=== PATIENT | female | born 1960 | race American Indian/Alaskan Native ===

== ENCOUNTER 2017-06-02 09:10 | Emergency (ER) | payer MEDICARE, MEDICAID ==
[~2017-06-02] VITALS: Ht 167.6 cm; Wt 102.7 kg
[2017-06-02 09:10] VITALS: BP 134/90
[~2017-06-02 09:10] MED LIST: CLON-527 PO; DIPH25CA83 PO; EPIN0.3P8 IM; FLUT16SP2 BOTHNARES; OXYC-134 PO; PRED10TA PO
[2017-06-02] MEDS ORDERED: CEPH500C5 PO (09:50)
== END 2017-06-02 12:50 | disposition home or self-care (01) ==
LOC: ER 09:10
DX: J02.0 Streptococcal pharyngitis (principal); R06.02 Shortness of breath; M54.5 Low back pain; F41.9 Anxiety disorder, unspecified; F41.0 Panic disorder [episodic paroxysmal anxiety]; N18.9 Chronic kidney disease, unspecified; Z88.0 Allergy status to penicillin; Z88.1 Allergy status to other antibiotic agents; Z88.2 Allergy status to sulfonamides; Z88.5 Allergy status to narcotic agent; Z79.899 Other long term (current) drug therapy
CPT/HCPCS: 99283

== ENCOUNTER 2017-11-28 17:23 | Observation (INO) | payer MEDICARE, MEDICAID ==
[~2017-11-28] VITALS: Ht 167.6 cm; Wt 104.5 kg
[~2017-11-28 17:23] MED LIST changes: +CEPH500C5 PO
[2017-11-28 17:48] LABS: BASOPHILS # (AUTO) 0.1 X10'3 (0-0.2); BASOPHILS % (AUTO) 0.9 % (0-1); EOSINOPHILS # (AUTO) 0.4 X10'3 (0-0.9); EOSINOPHILS % (AUTO) 3.7 % (0-6); HEMATOCRIT 41.4 % (35.0-45.0); HEMOGLOBIN 14.5 g/dl (12.0-16.0); LYMPHOCYTES # (AUTO) 3.7 X10'3 (1.1-4.8); LYMPHOCYTES % (AUTO) 37.5 % (21-51); MEAN CORPUSCULAR VOLUME 91.4 FL (78-98); MEAN PLATELET VOLUME 8.8 FL (7.4-10.4); MONOCYTES # (AUTO) 0.8 X10'3 (0-0.9); MONOCYTES % (AUTO) 8.4 % (2-12); NEUTROPHILS # (AUTO) 4.9 X10'3 (1.8-7.7); NEUTROPHILS % (AUTO) 49.5 % (42-75); PLATELET COUNT 243 X10'3 (140-440); RED BLOOD COUNT 4.52 X10'6 (4.20-5.60)
[2017-11-28 17:58] LABS: PARTIAL THROMBOPLASTIN TIME 25 SECONDS (22-32)
[2017-11-28 18:01] LABS: ALANINE AMINOTRANSFERASE 57 U/L (12-78); ALBUMIN 3.9 G/DL (3.4-5.0); ALBUMIN/GLOBULIN RATIO 1.1 (1.1-1.5); ALKALINE PHOSPHATASE 145 IU/L (46-116); ANION GAP 12 (8-16); ASPARTATE AMINO TRANSFERASE 28 U/L (10-37); BILIRUBIN,TOTAL 0.4 MG/DL (0.1-1.0); BLOOD UREA NITROGEN 19 MG/DL (7-18); BUN/CREATININE RATIO 13.3 (6.6-38.0); CALCIUM 9.4 MG/DL (8.5-10.1); CHLORIDE 107 MMOL/L (99-107); CREATININE 1.43 MG/DL (0.40-0.90); GLUCOSE 105 MG/DL (70-104); POTASSIUM 3.7 MMOL/L (3.5-5.1); SODIUM 142 MMOL/L (135-145); TOTAL CARBON DIOXIDE 22.6 MMOL/L (24-32); TOTAL PROTEIN 7.6 G/DL (6.4-8.2); eGFR 38 ML/MIN
[2017-11-28] MEDS ORDERED: CHOLECALCIFEROL (19:29)
[2017-11-28] MEDS ORDERED: METF500T PO (19:29)
[2017-11-28] MEDS ORDERED: acetaminophen 325mg tablet PO PRN ×2 (19:55)
[2017-11-28] MEDS ORDERED: ondansetron/PF 4mg/2ml inj IV PRN (19:55)
[2017-11-28] MEDS ORDERED: mag hydrox/Alum hydrox/simeth 30ml oral suspension PO PRN (19:55)
[2017-11-28] MEDS ORDERED: magnesium hydroxide 30ml (MOM) UD suspension PO PRN (19:55)
[2017-11-28] MEDS ORDERED: diphenhydrAMINE 25mg capsule PO PRN (20:00)
[2017-11-28] MEDS ORDERED: temazepam 15mg capsule PO PRN (21:00)
[2017-11-28] MEDS: clonazePAM 1mg tablet PO SCH (21:09)
[2017-11-28 22:00] VITALS: BP 150/88
[2017-11-29 02:00] VITALS: BP 130/73
[2017-11-29 06:00] VITALS: BP 141/81
[2017-11-29 06:52] LABS: BASOPHILS # (AUTO) 0.1 X10'3 (0-0.2); BASOPHILS % (AUTO) 0.7 % (0-1); EOSINOPHILS # (AUTO) 0.4 X10'3 (0-0.9); HEMOGLOBIN 14.5 g/dl (12.0-16.0); LYMPHOCYTES # (AUTO) 2.9 X10'3 (1.1-4.8); MEAN CORPUSCULAR HEMOGLOBIN 32.4 PG (27.0-31.0); MEAN CORPUSCULAR HGB CONC 35.4 % (33.0-36.5); MEAN CORPUSCULAR VOLUME 91.4 FL (78-98); MEAN PLATELET VOLUME 8.9 FL (7.4-10.4); MONOCYTES # (AUTO) 0.6 X10'3 (0-0.9); MONOCYTES % (AUTO) 8.6 % (2-12); NEUTROPHILS # (AUTO) 3.6 X10'3 (1.8-7.7); NEUTROPHILS % (AUTO) 47.7 % (42-75); PLATELET COUNT 219 X10'3 (140-440); RED BLOOD COUNT 4.49 X10'6 (4.20-5.60); RED CELL DISTRIBUTION WIDTH 12.8 % (11.5-14.5); WHITE BLOOD COUNT 7.5 X10'3 (4.5-11.0)
[2017-11-29 07:15] LABS: ALBUMIN 3.7 G/DL (3.4-5.0); ANION GAP 8 (8-16); BLOOD UREA NITROGEN 18 MG/DL (7-18); BUN/CREATININE RATIO 14.2 (6.6-38.0); CALCIUM 9.4 MG/DL (8.5-10.1); CHLORIDE 107 MMOL/L (99-107); CREATININE 1.27 MG/DL (0.40-0.90); GLUCOSE 104 MG/DL (70-104); POTASSIUM 3.7 MMOL/L (3.5-5.1); SODIUM 143 MMOL/L (135-145); TOTAL CARBON DIOXIDE 27.6 MMOL/L (24-32); eGFR 44 ML/MIN
[2017-11-29] MEDS ORDERED: aspirin 81mg tablet.DR PO SCH (08:00)
[2017-11-29] MEDS: clonazePAM 1mg tablet PO SCH ×2 (08:24→13:07)
[2017-11-29] MEDS ORDERED: nitroGLYCERIN 0.4mg SUBLingual tab SL PRN (09:20)
[2017-11-29] MEDS ORDERED: CAFFEINE CITRATE 60 MG/3 ML injection vial IV PRN (09:20)
[2017-11-29] MEDS ORDERED: metoprolol tartrate 1mg/ml inj IV PRN (09:20)
[2017-11-29] MEDS ORDERED: regadenoson 0.4mg/5ml syringe IV PRN (09:20)
[2017-11-29 11:00] VITALS: BP 143/84
== END 2017-11-29 15:00 | disposition home or self-care (01) ==
LOC: ER 17:23 → ED HOLD 19:52 → EDBEDREQ 20:10 → PCU 3S 21:08
PROVIDERS: ADMIT Hospitalist; ATTEND Family Medicine
DX: R07.89 Other chest pain (principal); F41.1 Generalized anxiety disorder; G47.33 Obstructive sleep apnea (adult) (pediatric); I12.9 Hypertensive chronic kidney disease with stage 1 through stage 4 chronic kidney disease, or unspecified chronic kidney disease; F41.0 Panic disorder [episodic paroxysmal anxiety]; N18.9 Chronic kidney disease, unspecified; R73.03 Prediabetes; I20.0 Unstable angina; Z87.891 Personal history of nicotine dependence; Z90.710 Acquired absence of both cervix and uterus
CPT/HCPCS: 36415; 71045; 80048; 80053; 84484; 85025; 85610; 85730; 87070; 93005; 93306; 99285; G0378

== ENCOUNTER 2018-10-22 11:18 | Emergency (ER) | payer MEDICARE, MEDICAID ==
[~2018-10-22] VITALS: Ht 167.6 cm; Wt 110.0 kg
[~2018-10-22 11:18] MED LIST changes: -CEPH500C5 PO; +CHOLECALCIFEROL; -FLUT16SP2 BOTHNARES; +METF500T PO; -OXYC-134 PO; -PRED10TA PO
[2018-10-22 13:01] LABS: BASOPHILS # (AUTO) 0.1 X10'3 (0-0.2); BASOPHILS % (AUTO) 1.3 % (0-1); EOSINOPHILS # (AUTO) 0.3 X10'3 (0-0.9); EOSINOPHILS % (AUTO) 3.3 % (0-6); HEMATOCRIT 45.4 % (35.0-45.0); HEMOGLOBIN 15.6 g/dl (12.0-16.0); LYMPHOCYTES # (AUTO) 2.4 X10'3 (1.1-4.8); LYMPHOCYTES % (AUTO) 28.8 % (21-51); MEAN CORPUSCULAR HEMOGLOBIN 32.1 PG (27.0-31.0); MEAN CORPUSCULAR HGB CONC 34.4 g/dL (33.0-36.5); MEAN CORPUSCULAR VOLUME 93.5 FL (78-98); MEAN PLATELET VOLUME 8.7 FL (7.4-10.4); MONOCYTES # (AUTO) 0.7 X10'3 (0-0.9); MONOCYTES % (AUTO) 8.6 % (2-12); NEUTROPHILS # (AUTO) 4.9 X10'3 (1.8-7.7); PLATELET COUNT 234 X10'3 (140-440); RED BLOOD COUNT 4.85 X10'6 (4.20-5.60); RED CELL DISTRIBUTION WIDTH 13.2 % (11.5-14.5); WHITE BLOOD COUNT 8.4 X10'3 (4.5-11.0)
[2018-10-22 13:16] LABS: ALANINE AMINOTRANSFERASE 216 U/L (12-78); ALBUMIN 3.8 G/DL (3.4-5.0); ALKALINE PHOSPHATASE 146 IU/L (46-116); ANION GAP 7 (8-16); ASPARTATE AMINO TRANSFERASE 99 U/L (10-37); BILIRUBIN,TOTAL 0.5 MG/DL (0.1-1.0); BLOOD UREA NITROGEN 20 MG/DL (7-18); BUN/CREATININE RATIO 15.7 (6.6-38.0); CHLORIDE 106 MMOL/L (99-107); CREATININE 1.27 MG/DL (0.40-0.90); GLUCOSE 98 MG/DL (70-104); POTASSIUM 3.9 MMOL/L (3.5-5.1); SODIUM 142 MMOL/L (135-145); TOTAL CARBON DIOXIDE 29.1 MMOL/L (24-32); TOTAL PROTEIN 7.7 G/DL (6.4-8.2); eGFR 44 ML/MIN
[2018-10-22 15:04] LABS: LIPASE 567 U/L (73-393)
[2018-10-22] MEDS ORDERED: ondansetron 4mg rapidly disintigrating tab PO ONE (15:35)
[2018-10-22] MEDS ORDERED: ibuprofen tablet 400 MG TABLET PO ONE (15:35)
[2018-10-22 15:48] LABS: CLARITY,URINE CLOUDY (Clear); COLOR,URINE YELLOW (Yellow); GLUCOSE, URINE NEGATIVE (Neg); KETONES,URINE NEGATIVE (Neg); LEUKOCYTE ESTERASE ,URINE NEGATIVE (Neg); NITRITES, URINE NEGATIVE (Neg); OCCULT BLOOD,URINE NEGATIVE (Neg); PH,URINE 5.5 (4.8-8.0); PROTEIN,URINE NEGATIVE (Neg); UROBILINOGEN,URINE 0.2 E.U/dL (0.2-1.0)
[2018-10-22 15:52] LABS: UA COLLECTION TYPE CLN CATCH MIDSTREAM
[2018-10-22 15:55] LABS: SQUAMOUS EPITHELIAL CELL,UR MANY /LPF (FEW)
[2018-10-22 15:56] LABS: BACTERIA,URINE 1+ /HPF (Neg); CAL OXALATE CRYSTALS 1+ /HPF (NEGATIVE); RBC,URINE 0-2 /HPF (0-2); WBC,URINE 0-4 /HPF (0-4)
[2018-10-22] MEDS ORDERED: ONDA8TAB6 PO (16:34)
[2018-10-22 16:46] VITALS: BP 163/90
== END 2018-10-22 16:49 | disposition home or self-care (01) ==
LOC: ER 11:19
DX: K85.90 Acute pancreatitis without necrosis or infection, unspecified (principal); N18.9 Chronic kidney disease, unspecified; Z90.49 Acquired absence of other specified parts of digestive tract; Z90.710 Acquired absence of both cervix and uterus; Z88.2 Allergy status to sulfonamides; Z88.1 Allergy status to other antibiotic agents; Z88.5 Allergy status to narcotic agent; Z88.8 Allergy status to other drugs, medicaments and biological substances; Z79.84 Long term (current) use of oral hypoglycemic drugs; Z79.899 Other long term (current) drug therapy
CPT/HCPCS: 36415; 74176; 80053; 81001; 83690; 85025; 85610; 99284

== ENCOUNTER 2019-11-17 19:04 | Emergency (ER) | payer MEDICARE, MEDICAID ==
[~2019-11-17] VITALS: Ht 167.6 cm; Wt 113.6 kg
[~2019-11-17 19:04] MED LIST changes: +ONDA8TAB6 PO
[2019-11-17 19:48] LABS: URINE HCG NEGATIVE (NEG)
[2019-11-17 19:52] LABS: CLARITY,URINE CLEAR (Clear); COLOR,URINE STRAW (Yellow); GLUCOSE, URINE NEGATIVE (Neg); KETONES,URINE NEGATIVE (Neg); LEUKOCYTE ESTERASE ,URINE NEGATIVE (Neg); NITRITES, URINE NEGATIVE (Neg); OCCULT BLOOD,URINE TRACE-INTACT (Neg); PROTEIN,URINE NEGATIVE (Neg); UROBILINOGEN,URINE 0.2 E.U/dL (0.2-1.0)
[2019-11-17 20:01] LABS: BASOPHILS # (AUTO) 0.1 X10'3 (0-0.2); BASOPHILS % (AUTO) 1.1 % (0-1); EOSINOPHILS # (AUTO) 0.4 X10'3 (0-0.9); EOSINOPHILS % (AUTO) 4.6 % (0-6); HEMATOCRIT 44.8 % (35.0-45.0); HEMOGLOBIN 15.2 g/dl (12.0-16.0); LYMPHOCYTES # (AUTO) 2.8 X10'3 (1.1-4.8); LYMPHOCYTES % (AUTO) 37.4 % (21-51); MEAN CORPUSCULAR HEMOGLOBIN 31.9 PG (27.0-31.0); MEAN CORPUSCULAR VOLUME 93.9 FL (78-98); MEAN PLATELET VOLUME 9.1 FL (7.4-10.4); MONOCYTES # (AUTO) 0.9 X10'3 (0-0.9); MONOCYTES % (AUTO) 11.7 % (2-12); NEUTROPHILS # (AUTO) 3.4 X10'3 (1.8-7.7); NEUTROPHILS % (AUTO) 45.2 % (42-75); PLATELET COUNT 217 X10'3 (140-440); RED BLOOD COUNT 4.78 X10'6 (4.20-5.60); RED CELL DISTRIBUTION WIDTH 13.5 % (11.5-14.5); WHITE BLOOD COUNT 7.6 X10'3 (4.5-11.0)
[2019-11-17 20:06] LABS: UA COLLECTION TYPE CLN CATCH MIDSTREAM
[2019-11-17 20:07] LABS: BACTERIA,URINE NONE SEEN /HPF (Neg); RBC,URINE 0-2 /HPF (0-2); SQUAMOUS EPITHELIAL CELL,UR MODERATE /LPF (FEW); WBC,URINE 0-4 /HPF (0-4)
[2019-11-17 20:12] LABS: ALANINE AMINOTRANSFERASE 154 U/L (12-78); ALBUMIN 3.8 G/DL (3.4-5.0); ALBUMIN/GLOBULIN RATIO 0.9 (1.1-1.5); ALKALINE PHOSPHATASE 158 IU/L (46-116); ANION GAP 11 (8-16); ASPARTATE AMINO TRANSFERASE 78 U/L (10-37); BILIRUBIN,TOTAL 0.5 MG/DL (0.1-1.0); BLOOD UREA NITROGEN 14 MG/DL (7-18); BUN/CREATININE RATIO 11.6 (6.6-38.0); CALCIUM 8.7 MG/DL (8.5-10.1); CHLORIDE 109 MMOL/L (99-107); CREATININE 1.21 MG/DL (0.40-0.90); GLUCOSE 83 MG/DL (70-104); POTASSIUM 4.1 MMOL/L (3.5-5.1); SODIUM 146 MMOL/L (135-145); TOTAL CARBON DIOXIDE 26.1 MMOL/L (24-32); TOTAL PROTEIN 8.2 G/DL (6.4-8.2); eGFR 46 ML/MIN
[2019-11-17] MEDS ORDERED: ondansetron/PF 4mg/2ml inj IV ONE (20:20)
[2019-11-17] MEDS ORDERED: normal saline 1000ML IV soln IVB ONE (20:20)
[2019-11-17] MEDS ORDERED: ketorolac trometh. 30mg/ml inj. IV ONE (20:20)
[2019-11-17 21:24] VITALS: BP 160/69
[2019-11-17] MEDS ORDERED: KETO10TA2 PO (21:28)
[2019-11-17] MEDS ORDERED: ONDA4TAB6 PO (21:28)
== END 2019-11-17 22:03 | disposition home or self-care (01) ==
LOC: ER 19:05
DX: N20.0 Calculus of kidney (principal); R10.32 Left lower quadrant pain; N18.3 Chronic kidney disease, stage 3 (moderate); F41.9 Anxiety disorder, unspecified; G47.30 Sleep apnea, unspecified; Z90.49 Acquired absence of other specified parts of digestive tract; Z90.710 Acquired absence of both cervix and uterus; Z88.2 Allergy status to sulfonamides; Z88.5 Allergy status to narcotic agent; Z88.8 Allergy status to other drugs, medicaments and biological substances; Z79.899 Other long term (current) drug therapy
CPT/HCPCS: 36415; 74176; 80053; 81001; 81025; 85025; 96374; 96375; 99284; J1885; J2405; J7030

== ENCOUNTER 2020-10-17 11:51 | Emergency (ER) | payer MEDICARE, MEDICAID ==
[~2020-10-17] VITALS: Ht 167.6 cm; Wt 117.6 kg
[~2020-10-17 11:51] MED LIST changes: +KETO10TA2 PO; +ONDA4TAB6 PO
[2020-10-17 12:02] VITALS: BP 172/88
--- NOTE | 2020-10-17 14:02 | NUR ---
pt is resting quietly on gurney, resp even and unlabored, skin p/w/d, talking full sentences
[2020-10-17] MEDS ORDERED: dexamethasone sod phosphate 10mg/ml inj PO STA (14:05)
--- NOTE | 2020-10-17 14:10 | NUR ---
pt to xray
[2020-10-17] MEDS ORDERED: LIDOcaine Viscous 15ml cup MM STA (14:44)
[2020-10-17] MEDS ORDERED: mag hydrox/Alum hydrox/simeth 30ml oral suspension PO ONE (14:45)
[2020-10-17 15:53] LABS: BASOPHILS # (AUTO) 0.1 X10'3 (0-0.2); BASOPHILS % (AUTO) 1.2 % (0-1); EOSINOPHILS # (AUTO) 0.3 X10'3 (0-0.9); EOSINOPHILS % (AUTO) 4.7 % (0-6); HEMATOCRIT 43.6 % (35.0-45.0); HEMOGLOBIN 14.9 g/dl (12.0-16.0); LYMPHOCYTES # (AUTO) 2.4 X10'3 (1.1-4.8); LYMPHOCYTES % (AUTO) 33.3 % (21-51); MEAN CORPUSCULAR HEMOGLOBIN 32.4 PG (27.0-31.0); MEAN CORPUSCULAR HGB CONC 34.1 g/dL (33.0-36.5); MEAN PLATELET VOLUME 9.1 FL (7.4-10.4); MONOCYTES # (AUTO) 0.5 X10'3 (0-0.9); MONOCYTES % (AUTO) 7.7 % (2-12); NEUTROPHILS # (AUTO) 3.8 X10'3 (1.8-7.7); NEUTROPHILS % (AUTO) 53.1 % (42-75); PLATELET COUNT 225 X10'3 (140-440); RED BLOOD COUNT 4.59 X10'6 (4.20-5.60); RED CELL DISTRIBUTION WIDTH 13.2 % (11.5-14.5); WHITE BLOOD COUNT 7.1 X10'3 (4.5-11.0)
[2020-10-17 16:05] LABS: ALANINE AMINOTRANSFERASE 68 U/L (12-78); ALBUMIN 3.8 G/DL (3.4-5.0); ALKALINE PHOSPHATASE 146 IU/L (46-116); ANION GAP 6 (8-16); ASPARTATE AMINO TRANSFERASE 34 U/L (10-37); BILIRUBIN,TOTAL 0.6 MG/DL (0.1-1.0); BLOOD UREA NITROGEN 16 MG/DL (7-18); BUN/CREATININE RATIO 13.8 (6.6-38.0); CALCIUM 8.8 MG/DL (8.5-10.1); CHLORIDE 108 MMOL/L (99-107); CREATININE 1.16 MG/DL (0.40-0.90); GLUCOSE 101 MG/DL (70-104); SODIUM 143 MMOL/L (135-145); TOTAL CARBON DIOXIDE 29.1 MMOL/L (24-32); TOTAL PROTEIN 7.8 G/DL (6.4-8.2); eGFR 48 ML/MIN
[2020-10-17] MEDS ORDERED: AMLO5TAB4 PO (16:53)
[2020-10-17] MEDS ORDERED: CLIN150C2 PO (16:53)
== END 2020-10-17 17:08 | disposition home or self-care (01) ==
LOC: ER 11:53
DX: R59.1 Generalized enlarged lymph nodes (principal); R13.10 Dysphagia, unspecified; N18.9 Chronic kidney disease, unspecified; Z98.890 Other specified postprocedural states; F31.9 Bipolar disorder, unspecified; F32.9 Major depressive disorder, single episode, unspecified; Z88.2 Allergy status to sulfonamides; Z88.1 Allergy status to other antibiotic agents; Z88.8 Allergy status to other drugs, medicaments and biological substances; Z79.899 Other long term (current) drug therapy
CPT/HCPCS: 36415; 70360; 70490; 80053; 85025; 99285; J1100

== ENCOUNTER 2021-01-18 14:11 | Outpatient (CLI) | payer MEDICARE, MEDICAID, OTHER ==
[~2021-01-18 14:11] MED LIST changes: +AMLO5TAB4 PO
== END 2021-01-18 23:59 | disposition home or self-care (01) ==
LOC: RAD 14:11
PROVIDERS: ATTEND Family Medicine
DX: K21.9 Gastro-esophageal reflux disease without esophagitis (principal); R13.14 Dysphagia, pharyngoesophageal phase
CPT/HCPCS: 74230

== ENCOUNTER 2021-12-15 11:16 | Day surgery (SDC) | payer MEDICARE, MEDICAID, OTHER ==
[~2021-12-15] VITALS: Ht 167.6 cm; Wt 117.3 kg
[2021-12-15 11:40] VITALS: BP 147/81
[2021-12-15] MEDS ORDERED: CARV6.253 PO (12:04)
[2021-12-15] MEDS ORDERED: CRAN500T4 PO (12:04)
[2021-12-15] MEDS ORDERED: CLON-371 PO (12:04)
[2021-12-15] MEDS ORDERED: LIDOcaine 1% 30ml preserv. free vial SQ STA (12:11)
[2021-12-15 13:09] VITALS: BP 179/111
== END 2021-12-15 13:09 | disposition home or self-care (01) ==
LOC: SSTAY O 11:16
PROVIDERS: ATTEND Preventive Medicine Aerospace Medicine
DX: R59.0 Localized enlarged lymph nodes (principal); E04.1 Nontoxic single thyroid nodule
CPT/HCPCS: 76536

== ENCOUNTER 2024-04-16 17:30 | Emergency (ER) | payer MEDICARE, MEDICAID, OTHER ==
[~2024-04-16] VITALS: Ht 167.6 cm; Wt 120.0 kg
[~2024-04-16 17:30] MED LIST changes: -AMLO5TAB4 PO; +CARV6.253 PO; -CHOLECALCIFEROL; +CRAN500T4 PO; -DIPH25CA83 PO; -EPIN0.3P8 IM; -KETO10TA2 PO; -METF500T PO; -ONDA4TAB6 PO; -ONDA8TAB6 PO
[2024-04-16 17:54] VITALS: TEMP 98.6
[2024-04-16 19:52] LABS: BILIRUBIN,URINE NEGATIVE (Neg); CLARITY,URINE CLEAR (Clear); COLOR,URINE YELLOW (Yellow); GLUCOSE, URINE NEGATIVE (Neg); KETONES,URINE NEGATIVE (Neg); LEUKOCYTE ESTERASE ,URINE SMALL (Neg); NITRITES, URINE NEGATIVE (Neg); OCCULT BLOOD,URINE SMALL (Neg); PROTEIN,URINE NEGATIVE (Neg); UROBILINOGEN,URINE 0.2 E.U/dL (0.2-1.0)
[2024-04-16 19:58] LABS: UA COLLECTION TYPE CLN CATCH MIDSTREAM
[2024-04-16 20:03] LABS: BASOPHILS # (AUTO) 0.1 X10'3 (0-0.2); BASOPHILS % (AUTO) 1.2 % (0-1); EOSINOPHILS # (AUTO) 0.4 X10'3 (0-0.9); EOSINOPHILS % (AUTO) 5.9 % (0-6); HEMOGLOBIN 14.7 g/dl (12.0-16.0); LYMPHOCYTES # (AUTO) 2.5 X10'3 (1.1-4.8); LYMPHOCYTES % (AUTO) 36.4 % (21-51); MEAN CORPUSCULAR HEMOGLOBIN 32.1 PG (27.0-31.0); MEAN CORPUSCULAR VOLUME 91.9 FL (78-98); MEAN PLATELET VOLUME 9.3 FL (7.4-10.4); MONOCYTES # (AUTO) 0.7 X10'3 (0-0.9); NEUTROPHILS # (AUTO) 3.2 X10'3 (1.8-7.7); NEUTROPHILS % (AUTO) 46.5 % (42-75); PLATELET COUNT 209 X10'3 (140-440); RED BLOOD COUNT 4.57 X10'6 (4.20-5.60); RED CELL DISTRIBUTION WIDTH 13.3 % (11.5-14.5); WHITE BLOOD COUNT 6.9 X10'3 (4.5-11.0)
[2024-04-16 20:08] LABS: BACTERIA,URINE 1+ /HPF (Neg); SQUAMOUS EPITHELIAL CELL,UR MODERATE /LPF (FEW)
[2024-04-16] MEDS ORDERED: HYDROcodone/acetaminophen 10/325mg tab PO ONE (20:30)
[2024-04-16] MEDS: ketorolac trometh 30MG/ML vial 30 MG/ML VIAL IM ONE (20:30)
[2024-04-16 20:36] LABS: ALANINE AMINOTRANSFERASE 37 U/L (12-78); ALBUMIN 3.9 G/DL (3.4-5.0); ALBUMIN/GLOBULIN RATIO 1.1 (1.1-1.5); ALKALINE PHOSPHATASE 135 IU/L (46-116); ANION GAP 8 (8-16); ASPARTATE AMINO TRANSFERASE 31 U/L (10-37); BILIRUBIN,TOTAL 0.5 MG/DL (0.1-1.0); BLOOD UREA NITROGEN 18 MG/DL (7-18); BUN/CREATININE RATIO 12.5 (10.0-20.0); CALCIUM 9.1 MG/DL (8.5-10.1); CHLORIDE 108 MMOL/L (99-107); CREATININE 1.44 MG/DL (0.40-0.90); GLUCOSE 99 MG/DL (70-104); LIPASE 31 U/L (16-77); POTASSIUM 3.9 MMOL/L (3.5-5.1); SODIUM 145 MMOL/L (135-145); TOTAL CARBON DIOXIDE 29.5 MMOL/L (24-32); TOTAL PROTEIN 7.6 G/DL (6.4-8.2); eCRCL 38 ML/MIN; eGFR 37 ML/MIN
[2024-04-16] MEDS: normal saline 1000ml 1,000 ML IV ONE (21:35)
[2024-04-16] MEDS: ondansetron 4mg rapidly disintigrating tab PO ONE (21:36)
[2024-04-16] MEDS: CefTRIAXone 1000mg IM Kit (w/lidocaine diluent) IM ONE (21:41)
[2024-04-16 22:24] VITALS: BP 168/78; PULSE 68; RESP 16; O2SAT 100
== END 2024-04-16 22:28 | disposition home or self-care (01) ==
LOC: ER 17:31
DX: N39.0 Urinary tract infection, site not specified (principal); F41.9 Anxiety disorder, unspecified; F32.A Depression, unspecified; F41.0 Panic disorder [episodic paroxysmal anxiety]; N18.9 Chronic kidney disease, unspecified; G47.30 Sleep apnea, unspecified; Z88.0 Allergy status to penicillin; Z88.2 Allergy status to sulfonamides; Z88.1 Allergy status to other antibiotic agents; Z88.5 Allergy status to narcotic agent; Z79.899 Other long term (current) drug therapy; Z90.710 Acquired absence of both cervix and uterus; Z90.49 Acquired absence of other specified parts of digestive tract; Z87.442 Personal history of urinary calculi
CPT/HCPCS: 36415; 74176; 80053; 81001; 83605; 83690; 85025; 87040; 87077; 87088; 87186; 96372; 99285; J0696

== ENCOUNTER 2025-03-01 12:09 | Inpatient (IN) | payer MEDICARE, MEDICAID ==
[~2025-03-01] VITALS: Ht 167.6 cm; Wt 113.6 kg
[~2025-03-01 12:09] MED LIST changes: -CRAN500T4 PO; +CRAN500T7 PO
--- NOTE | 2025-03-01 12:38 | Physician Documentation ---
History of Present Illness ~ Chief Complaint: Urinary Symptoms Stated Complaint: VOMITING Time Seen by MD: 15:18 Primary Medical Doctor: neyda BELCHER This is a 64-year-old female who presents with concern for persistent urinary tract infection symptoms, patient is seen by primary care and referred to the emergency department due to concern for antibiotic resistant UTI with possible pyelonephritis. Patient reports fever and chills at home. Patient states she has had pyelonephritis at least 3 times in his require hospital admissions. She states that over the last two weeks she has had symptoms that were intermittent. She has had a temperature of over 103 F and chills. sHe is appropriate to the situation and a good historian Medication Reconciliation Allergies: Coded Allergies: propoxyphene napsylate (Verified Allergy, Intermediate, 04/16/24) Penicillins (Verified Allergy, Unknown, 03/01/25) Sulfa (Sulfonamide Antibiotics) (Verified Allergy, Unknown, difficulty breathing, hives, 03/01/25) acetaminophen (Verified Allergy, Unknown, 03/01/25) amoxicillin (Verified Allergy, Unknown, 03/01/25) codeine (Verified Allergy, Unknown, 03/01/25) hydrocodone bit (Verified Allergy, Unknown, 04/16/24) HIVES propoxyphene (Verified Allergy, Unknown, 04/16/24) tetracycline (Verified Allergy, Unknown, 04/16/24) Scheduled Carvedilol (Carvedilol), 1 TAB PO BID, (Reported) Clonazepam* (Klonopin*), 1 MG PO TID, (Reported) Cranberry Extract (Cranberry), 1 TAB PO Q12H, (Reported) Past Medical History Past Medical History: Heart Valve Disease, Sleep Apnea, Chronic Kidney Disease, Kidney Stones, Anxiety, Depression, Panic Disorder Past Surgical History: cholecystectomy, , hysterectomy Other Past Surgical History: Anterior cervical fusion Alcohol Use: Rarely Drug Use: none Lives with: Family Lives In: Home Occupation: employed Review of Systems ROS As stated above in the HPI, otherwise all systems are reviewed and negative. Physical Exam Vital Signs: Temperature: 97.0, Source: Temporal, Heart Rate: 90, Respiratory Rate: 18, BP: 122/66, Pulse Oximetry: 99, Weight: 113.640 Physical Exam VITALS: Reviewed and as above. GENERAL: Alert, nontoxic appearing, no apparent distress. HEENT: RESPIRATORY: No increased work of breathing, no respiratory distress, speaking in full clear sentences CHEST: CV: BACK: GI: MUSCULOSKELETAL: SKIN: NEURO: PSYCH: Progress Results/Orders Results/Orders Orders - GREGORY LATIF METALIZER FIELD OPERATION Page Hospitalist (03/01/25 ) Completed Orders - GREGORY LATIF [employer]PERATION Normal Saline 1000ml (0.9% Sodium Chlori (03/01/25 15:50) Ceftriaxone 2gm/D5w 50ml Bag (Rocephin 2 (03/01/25 15:48) LA (03/01/25 16:05) Medications Received in ER Medications (Trade) Dose Ordered Sig/Agustina Route PRN Reason Start Time Stop Time Status Last Admin Dose Admin (0.9% sodium chloride (NS) 1000ml IV soln) 2,000 ml ONCE ONCE IVB 03/01/25 15:50 03/01/25 15:51 DC 03/01/25 16:09 2,000 ML Ceftriaxone Sodium/Dextrose 50 ml @ 100 mls/hr NOW STAT IV 03/01/25 15:48 03/01/25 16:17 DC 03/01/25 16:09 100 MLS/HR (Tylenol tablet) 650 mg Q6H PRN PO Fever above 101 03/01/25 16:30 03/01/25 22:17 650 MG Sodium Chloride 1,000 ml @ 150 mls/hr Q6H40M IV 03/01/25 16:30 03/01/25 16:47 150 MLS/HR Vital Signs 03/01/25 03/01/25 03/01/25 12:26 15:50 16:02 Temp 97.0 Pulse 90 98 Resp 18 18 18 B/P (MAP) 122/66 134/87 (103) Pulse Ox 99 98 O2 Flow Rate 0 Laboratory Tests Test 03/01/25 13:21 03/01/25 15:10 03/01/25 16:22 White Blood Count 23.0 H Red Blood Count 4.31 Hemoglobin 13.3 Hematocrit 38.8 Mean Corpuscular Volume 90.1 Mean Corpuscular Hemoglobin 30.9 Mean Corpuscular Hemoglobin Concent 34.3 Red Cell Distribution Width 13.7 Platelet Count 338 Mean Platelet Volume 7.8 Neutrophils (%) (Auto) 87.5 H Lymphocytes (%) (Auto) 5.2 L Monocytes (%) (Auto) 6.9 Eosinophils (%) (Auto) 0.1 Basophils (%) (Auto) 0.3 Neutrophils # (Auto) 20.2 H Lymphocytes # (Auto) 1.2 Monocytes # (Auto) 1.6 H Eosinophils # (Auto) 0.0 Basophils # (Auto) 0.1 CBC Comment Erythrocyte Sedimentation Rate 79 H Sodium Level 138 Potassium Level 5.3 H Chloride Level 102 Carbon Dioxide Level 27.7 Anion Gap 8 Blood Urea Nitrogen 31 H Creatinine 3.07 H Estimated GFR/1.73 m2 15 BUN/Creatinine Ratio 10.1 Glucose Level 168 H Calcium Level 9.1 Total Bilirubin 0.8 Aspartate Amino Transf (AST/SGOT) 17 Alanine Aminotransferase (ALT/SGPT) 19 Alkaline Phosphatase 158 H C-Reactive Protein 7.27 H Total Protein 8.7 H Albumin 3.2 L Globulin 5.5 H Albumin/Globulin Ratio 0.6 L Procalcitonin 52.30 H Chemistry Comments Urine Specimen Description Cln catch midstream Urine Color Yellow Urine Clarity Cloudy Urine pH 6.0 Urine Specific [place] 1.020 Urine Protein 100 H Urine Glucose (UA) Negative Urine Ketones Trace H Urine Occult Blood Large H Urine Nitrite Negative Urine Bilirubin Negative Urine Urobilinogen 0.2 Urine Leukocyte Esterase Large H Urine RBC 3-10 Urine WBC Tntc H Urine Squamous Epithelial Cells Moderate Urine Bacteria 2+ Urine Culture Indicated Indicated Volume Urine Centrifuged 3 ml Urine Comment Low volume Lactic Acid Level 1.5 Microbiology Date/Time Source Procedure Growth Status 03/01/25 15:39 Urine Clean Catch Midstream Urine Culture - Preliminary Culture received. Resulted Medical Decision Making Findings MSE performed in triage and patient returned to ED lobby by nursing staff to await available ED room Patient presents with concerns over acute pyelonephritis secondary to her urinalysis and elevated white count over 20. Additionally her GFR is grossly diminished in to the 15 region. Looks like she does have a history of kidney dysfunction however this is concerning for NIRAV at this time. Departure Disposition: 01 HOME / SELF CARE / HOMELESS Impression: Primary Impression: Acute urinary tract infection Additional Impressions: Acute pyelonephritis NIRAV (acute kidney injury) Referrals: NO PRIMARY CARE PROVIDER (PCP) Signature Scribe Signature: t Attestation: Scribed for Gregory Latif Manpower Development Manager by Gregory Cho NP . 03/01/25 23:33 RAMIN LEE Mar 01, 2025 12:38 GREGORY LATIF [employer]PER[employer] Mar 01, 2025 15:58
[2025-03-01 13:30] LABS: MEAN PLATELET VOLUME 7.8 FL (7.4-10.4); RED CELL DISTRIBUTION WIDTH 13.7 % (11.5-14.5)
[2025-03-01 13:47] LABS: CREATININE 3.07 MG/DL (0.40-0.90); TOTAL CARBON DIOXIDE 27.7 MMOL/L (24-32); eCRCL 18 ML/MIN; eGFR 15 ML/MIN
[2025-03-01 15:30] LABS: LEUKOCYTE ESTERASE ,URINE LARGE (Neg); NITRITES, URINE NEGATIVE (Neg); OCCULT BLOOD,URINE LARGE (Neg)
[2025-03-01 15:36] LABS: UA COLLECTION TYPE CLN CATCH MIDSTREAM
[2025-03-01 15:37] LABS: SQUAMOUS EPITHELIAL CELL,UR MODERATE /LPF (FEW)
[2025-03-01] MEDS: CefTRIAXone 2gm/D5W 50ml BAG 50 ML IV STA (16:09)
[2025-03-01] MEDS: normal saline 1000ML IV soln IVB ONE (16:09)
[2025-03-01] MEDS ORDERED: magnesium Cl slow-release 64mg tablet PO PRN ×2 (16:20→16:30)
[2025-03-01] MEDS ORDERED: magnesium sulf-water 2g/50mL 50 ML IV PRN ×2 (16:20→16:30)
[2025-03-01] MEDS ORDERED: potassium Cl 40MEQ/1/2NS 520ml 520 ML IV PRN ×2 (16:20→16:30)
[2025-03-01] MEDS ORDERED: magnesium hydroxide 30ml (MOM) UD suspension PO PRN ×2 (16:20→16:30)
[2025-03-01] MEDS ORDERED: normal saline 1000ml 1,000 ML IV SCH (16:20)
[2025-03-01] MEDS ORDERED: mag hydrox/Alum hydrox/simeth 30ml oral suspension PO PRN (16:20)
[2025-03-01] MEDS ORDERED: magnesium sulf-water 4G/100mL 100 ML IV PRN ×2 (16:20→16:30)
[2025-03-01] MEDS ORDERED: ondansetron/PF 4mg/2ml inj IV PRN ×2 (16:20→16:30)
[2025-03-01] MEDS ORDERED: potassium Cl 20 mEq SR tablet PO PRN ×4 (16:20→16:30)
[2025-03-01] MEDS ORDERED: morphine 4 MG/ML inj SYRINge IV PRN (16:30)
[2025-03-01] MEDS ORDERED: HYDROcodone/acetaminophen 5mg/325mg tablet PO PRN (16:30)
[2025-03-01] MEDS ORDERED: bisacodyl 10mg suppository rectal RC PRN (16:30)
[2025-03-01] MEDS ORDERED: CefTRIAXone/D5W-Rocephin 1gm 50 ML IV SCH (16:45)
[2025-03-01] MEDS: normal saline 1000ml 1,000 ML IV SCH (16:47)
--- NOTE | 2025-03-01 17:47 | HISTORY AND PHYSICAL-Residence ---
History & Physical Providers to CC Resident Creating Document: MARYNAZIAH, RES ~ History of Present Illness Primary Medical Doctor: neyda Reason for Admit\Complaint: Urinary tract infection, acute kidney injury History of Present Illness 64 year-old female with a history of hypertension, PTSD,obstructive sleep apnea recurrent urinary tract infections (UTIs), and renal calculi presented to the Emergency Department with Painful urination, severe costovertebral angle tenderness which radiates to groin with intensity of 7/10 burning type of pain and suprapubic discomfort which present for the past 4 days She reports a long-standing history of recurrent UTIs and recently completed a 7-day course of ciprofloxacin. However from past 4 days patient complained with a worsening of her symptoms. Her symptoms are associated with Fever and chills, Nausea and vomiting Stress incontinence, Fatigue Patient uses CPAP at home Allergies: Coded Allergies: propoxyphene napsylate (Verified Allergy, Intermediate, 04/16/24) Penicillins (Verified Allergy, Unknown, 03/01/25) Sulfa (Sulfonamide Antibiotics) (Verified Allergy, Unknown, difficulty breathing, hives, 03/01/25) acetaminophen (Verified Allergy, Unknown, 03/01/25) amoxicillin (Verified Allergy, Unknown, 03/01/25) codeine (Verified Allergy, Unknown, 03/01/25) hydrocodone bit (Verified Allergy, Unknown, 04/16/24) HIVES propoxyphene (Verified Allergy, Unknown, 04/16/24) tetracycline (Verified Allergy, Unknown, 04/16/24) Home Medications Home Medications Active Reported Cranberry (Cranberry Extract) 500 Mg Tablet 1 Tab PO Q12H Carvedilol 6.25 Mg Tablet 1 Tab PO BID Klonopin* (Clonazepam) 1 Mg Tablet 1 Mg PO TID Past Medical History Past Medical History Hypertension Posttraumatic stress disorder History of pyelonephritis Recurrent UTI Renal calculi Past Surgical History Surgical History Comment cholecystectomy hysterectomy Past Social History Social History Comment She lives in a home with his grandson who is taking care of her and she is able to ambulate without any assistance She is ex-smoker she quit smoking 10 years before the she used to smoke 1 pack of cigarette 25 year She is a nonalcohol, not a drug user, denies using marijuana Occupation-disabled Smoking: Cigarettes Alcohol Use: Rarely Drug Use: None Lives with: Family Lives In: Home Occupation: employed ROS ROS Constitutional: Patient complained fever, chills and tiredness Eyes: No pain, erythema, discharge, blurring of vision ENT: No sore throat, epistaxis, tinnitus Cardiovascular: No chest pain, No current palpitations, syncope, lower extremity edema, paroxysmal nocturnal dyspnea Respiratory: No shortness of breath , No cough, hemoptysis Gastrointestinal: No decrease appetite , No Nausea, vomiting,diarrhea and abdominal pain. Genitourinary: Patient complains pain in the costovertebral angle that radiated to groin to groin and suprapubic tenderness, dysuria, stress incontinence Integumentary: No change in skin, hair, nails. No swelling, bruising, abrasions Neurologic: patient didnot report any symptoms Psychiatric: No delusions, loss of interest in normal activity or change in sleep pattern, hallucinations, suicidal ideations Endocrine: No fatigue, weakness, polydipsia, polyuria, change in appetite, heat or cold intolerance, sweating, dry skin Hematological: No bleeding, petechiae, noted some bruises on left hand Allergies: No asthma or urticaria Exam Vitals: Vital Signs Date Time Temp Pulse Resp B/P (MAP) Pulse Ox O2 Delivery O2 Flow Rate FiO2 03/01/25 16:02 18 03/01/25 15:50 98 98 0 03/01/25 12:26 97.0 General: Patient is,alert, orientedx4 , answering questions with normal speech HEENT: Normocephalic and atraumatic, Oral mucosa is dry. No visible head injuries Neck: Trachea is in midline. No masses or JVD Chest: Normal air movement bilaterally , Bilateral normal breath sounds. No crackles, rhonchi or wheezes Cardiovascular: Regular rate and regular rhythm. S1-S2 normal. No rubs or murmurs Abdomen: On palpation patient reported tenderness in left costovertebral angle than right, with no guarding and rebound tenderness, bowel sounds are normal on auscultation Extremities: No cyanosis, clubbing or edema, No deformities, peripheral pulses 2+ BUDGET SPECIALIST: Patient is alert , awake, speech is clear CN II-XII - intact Normal Tone and Bulk in all extremities Sensation is intact in all extremities Co-ordination is intact Skin: warn and dry Diagnostic Data Last Recorded Lab Results: 03/01/25 1321 03/01/25 1321 Advance Care Planning Advanced Care plannin - 30 Minutes Additional Plan 64 years old female with history of recurrent UTI, hypertension, posttraumatic stress disorder he is currently evaluated for urinary tract infection Sepsis secondary to UTI Possible acute pyelonephritis Patient has a long history of recurrent urinary tract infection and she also reported recent history of fever and chills, current vitals are stable WBC count is elevated 23.0 H&H-13.3/38.8 ESR is elevated-79, CRP -7.27, ALP-158 and her baseline ALP is 146, procalcitonin-52.30 Lactic acid-normal Urinalysis-positive for bacteria Plan Ordered renal ultrasound Started IV ceftriaxone 1 g daily Started metronidazole 500 mg b.i.d. IV Started IV normal saline 150 cc/hour We will Consult steel die press set up operator in a.m. Acute kidney injury on chronic kidney disease stage III Possibly due to renal tubular stasis Patient baseline creatinine is 1.44 BUN-31, creatinine-3.07, BUN/creatinine ratio-10.1 Sodium -138, potassium-5.3 Plan Started IV normal saline 100 cc per hour Follow-up with spot urine sodium, creatinine, osmolarity Educated about nephrotoxic drugs like NSAIDs Hypertension Patient has a history of hypertension for which she takes carvedilol at home Her current vitals are stable Start home med carvedilol after med rec PTSD Patient takes clonazepam at home, continue it after med rec completion Code Status: Full code DVT prophylaxis: Heparin subQ Analgesia/Sedation: Morphine Line/tube: Peripheral PT: Ordered Prognosis: Guarded Disposition: Patient will be monitored in ortho, started on antibiotics and we will consult steel die press set up operator in a.m. moses hernandez PGY 1 Date of Service: Mar 01, 2025 Billing Provider: CHARBEL BERNAL MD Common Visit Codes: [id number] INP/OBS CARE (HIGH) Secondary Visit Codes: [id number] CARE PLAN 30 MINUTES MOSES HERNANDEZ, FRAN Mar 01, 2025 17:47 CHARBEL BERNAL MD Mar 02, 2025 16:51
[2025-03-01 19:00] VITALS: BP 139/44; PULSE 89; TEMP 100.9; O2SAT 95
--- NOTE | 2025-03-01 19:57 | RADIOLOGY REPORT ---
INDICATION: RECURRENT UTI TECHNIQUE: Multiple real-time sonographic images of the kidneys and bladder were obtained. COMPARISON: CT CT ABDOMEN PELVIS on DOS: 04/16/24, CT ABDOMEN PELVIS on DOS: 11/17/19 FINDINGS: The right kidney measures 10.6 cm in length, which is normal in size. There is normal echogenicity of the right kidney. No hydronephrosis. The left kidney measures 11.9 cm in length, which is normal in size. There is normal echogenicity of the left kidney. There is left hydronephrosis. Prevoid bladder volumes measure 15.8 ml. IMPRESSION: 1. Left-sided hydronephrosis, consider CT in further assessment as clinically indicated.
[2025-03-01] MEDS ORDERED: K and/or MAG REPLACEMENT MC SCH (20:00)
[2025-03-01] MEDS ORDERED: docusate sod 100mg capsule PO SCH (20:00)
[2025-03-01] MEDS ORDERED: heparin, porcine 5000 units/ml vial SQ SCH (20:00)
[2025-03-01] MEDS: heparin, porcine 5000 units/ml vial SQ SCH (20:58)
[2025-03-01] MEDS: metroNIDAZOLE-Flagyl 500mg/NS 100 ML IV SCH (20:58)
[2025-03-01 22:00] VITALS: BP 137/67; PULSE 89; RESP 20; TEMP 102.7; O2SAT 94
[2025-03-01 23:09] VITALS: TEMP 99.5
[2025-03-02] MEDS ORDERED: metroNIDAZOLE-Flagyl 500mg/NS 100 ML IV SCH
[2025-03-02 05:42] LABS: MEAN PLATELET VOLUME 8.2 FL (7.4-10.4); RED CELL DISTRIBUTION WIDTH 13.2 % (11.5-14.5)
[2025-03-02 05:49] LABS: CREATININE 2.86 MG/DL (0.40-0.90); TOTAL CARBON DIOXIDE 28.3 MMOL/L (24-32); eCRCL 19 ML/MIN; eGFR 17 ML/MIN
[2025-03-02 06:30] VITALS: BP 114/51; PULSE 78; RESP 19; TEMP 99; O2SAT 97
[2025-03-02] MEDS: CefTRIAXone 2gm/D5W 50ml BAG 50 ML IV SCH (08:05)
[2025-03-02 10:53] VITALS: BP 142/66; PULSE 85; RESP 14; TEMP 98.3; O2SAT 96
--- NOTE | 2025-03-02 11:01 | RADIOLOGY REPORT ---
CLINICAL HISTORY: abdomen pain shooting in groin TECHNIQUE: CT of the abdomen and pelvis was performed without IV contrast. This exam was performed according to our departmental dose optimization program. Up-to-date CT equipment and radiation dose reduction techniques are utilized as appropriate. CTDI 34.6 DLP 1936 COMPARISON: CT CT ABDOMEN PELVIS on DOS: 04/16/24, CT ABDOMEN PELVIS on DOS: 11/17/19 FINDINGS: Abdomen/Pelvis: The spleen, pancreas, adrenal glands, right kidney, and bladder are grossly unremarkable. There is diffuse hepatic steatosis. The uterus and gallbladder are absent. There is an 9 mm distal left ureteral calculus resulting in moderate to severe left hydroureteronephrosis. Hypodense left renal lesion is incompletely characterized due to lack of IV contrast. The abdominal aorta is normal in course and caliber. There are mild atherosclerotic calcifications. There is no free intraperitoneal air or fluid. There is no enlarged abdominal pelvic lymph node. There is no bowel wall thickening or dilatation. The appendix is normal. There is a moderate to large periampullary duodenal diverticulum. Other: The imaged lower thorax is unremarkable. No acute osseous abnormality is evident. There has been posterior L3-S1 fusion surgery. Impression: 1.9 mm distal left ureteral calculus resulting in moderate left hydroureteronephrosis. Diffuse hepatic steatosis. Hysterectomy. Cholecystectomy. Posterior lumbar spine fusion surgery.
[2025-03-02 18:00] VITALS: BP 139/69; PULSE 71; RESP 14; TEMP 98.1; O2SAT 96
--- NOTE | 2025-03-02 18:28 | PROGRESS NOTE- Residence ---
Progress Note - Resident Providers to CC Resident Creating Document: MOSES HERNANDEZ RES ~ Antibiotic Timeout Antibiotic Ordered?: Yes Subjective Patient was examined at the bedside, she still complains bilateral costovertebral angle tenderness with radiation to the groin and suprapubic tenderness with associated nausea Objective Vital Signs Date Time Temp Pulse Resp B/P (MAP) Pulse Ox O2 Delivery O2 Flow Rate FiO2 03/02/25 10:53 98.3 85 14 142/66 (91) 96 Room Air 03/02/25 08:10 0.0 Result Diagram: 03/02/2540303/02/25403 Patient is,alert, orientedx4 , answering questions with normal speech HEENT: Normocephalic and atraumatic, Oral and nasal mucosa is moist. No visible head injuries Neck: Trachea is in midline. No masses or JVD Chest: Normal air movement bilaterally , Bilateral normal breath sounds. No crackles, rhonchi or wheezes Cardiovascular: Regular rate and regular rhythm. S1-S2 normal. No rubs or murmurs Abdomen: Tenderness on palpation present on bilateral costovertebral angle tenderness, no guarding, no rigidity, normal bowel sounds are heard on auscultation Extremities: No cyanosis, clubbing or edema, No deformities, peripheral pulses 2+ CUSTOMER SERVICE ATTENDANT: Patient is alert , awake, speech is clear CN II-XII - intact Normal Tone and Bulk in all extremities Sensation is intact in all extremities Co-ordination is intact Skin: warn and dry Advance Care Planning Advanced Care plannin - 30 Minutes Assessment Assessment 64 years old female with hypertension, posttraumatic stress disorder, recurrent UTI, renal calculi presented to ED he is currently evaluated for UTI with sepsis Plan Plan Sepsis, POA secondary to urinary tract infection Sepsis 2/4 criteria met Temperature 99, pulse 85, blood pressure 142/66 WBC 17.4, ESR 85, procalcitonin 52 Urinalysis showed positive for bacteria pending cultures Lactic acid was normal Renal ultrasound shows- Left-sided hydronephrosis SpO2 97 on room air Abdomen/pelvic CT-1.9 mm distal left urethral calculus resulting in moderate left hydroureteronephrosis,Diffuse hepatic steatosis.Hysterectomy. Cholecystectomy. Posterior lumbar spine fusion surgery. Plan Continue IV ceftriaxone 1 g daily-2 and metronidazole 500 mg b.i.d. IV Continue IV normal saline 150 cc/hour Moderate hydronephrosis secondary to left distal ureterolithiasis of 1.9 mm Patient presents with intractable pain in costovertebral angle tenderness Renal ultrasound shows- Left-sided hydronephrosis Abdomen/pelvic CT-1.9 mm distal left urethral calculus resulting in moderate left hydroureteronephrosis,Diffuse hepatic steatosis.Hysterectomy. Cholecystectomy. Posterior lumbar spine fusion surgery. Plan Consulted urologist Dr. Cuellar and he will be evaluating patient tomorrow in a.m. for possible stent placement And patient is on NPO Acute kidney injury on chronic kidney disease stage 3 Possibly due to renal tubular stasis BUN -30, creatinine-2.86 Plan Continue normal saline IV 150 cc/hour Follow-up with spot urine sodium, creatinine, osmolarity Urologist was consulted and patient is on NPO Hypertension Started home med carvedilol 6.25 mg p.o. b.i.d. after med rec Hold if heart rate is less than 60 and systolic blood pressure less than 100 PTSD Patient takes clonazepam 1 mg p.o. b.i.d. Code Status: Full code DVT prophylaxis: Heparin subQ Analgesia/Sedation: Morphine Line/tube: Peripheral Diet: NPO PT: Ordered Prognosis: Guarded Disposition-patient will be monitored in surgery, urologist Dr. Cuellar and he will be evaluating patient tomorrow in a.m. for possible stent placementAnd patient is on NPO Date of Service: Mar 02, 2025 Billing Provider: CHARBEL BERNAL MD Common Visit Codes: [id number] INP/OBS CARE(HIGH) MOSES HERNANDEZ, RES Mar 02, 2025 18:28 CHARBEL BERNAL MD Mar 03, 2025 08:39
[2025-03-02 20:00] VITALS: RESP 16
[2025-03-02] MEDS: carvedilol 6.25mg tablet PO SCH (21:52)
[2025-03-02 22:00] VITALS: BP 144/73; PULSE 84; RESP 18; TEMP 99.6; O2SAT 96
[2025-03-03] VITALS (17 sets, daily range): BP systolic 124–177; BP diastolic 62–89; PULSE 68–79; RESP 13–18; TEMP 97.3–99.2; O2SAT 93–98
[2025-03-03 04:50] LABS: MEAN PLATELET VOLUME 8.3 FL (7.4-10.4); RED CELL DISTRIBUTION WIDTH 13.6 % (11.5-14.5)
[2025-03-03 05:08] LABS: CREATININE 2.18 MG/DL (0.40-0.90); TOTAL CARBON DIOXIDE 24.2 MMOL/L (24-32); eCRCL 25 ML/MIN; eGFR 23 ML/MIN
--- NOTE | 2025-03-03 07:51 | CONSULTATION REPORT ---
Consult Providers to CC ~ History of Present Illness Reason for Admit\Complaint: Left flank pain History of Present Illness Patient presented to the emergency department with significant flank pain nausea vomiting not feeling well. This has been going on for some time. She presented recently with urinary tract infection and was treated for that at that time. She was admitted treated for infection yesterday she had a CT scan which revealed a left obstructing ureteral stone with hydronephrosis. She states to me that she has had kidney stones in the past but has always passed them on her own. She also has a history of infections primarily E coli infections. Patient who has generally not feeling well at this time having frequency and urgency lack of appetite and nausea. Allergies: Coded Allergies: propoxyphene napsylate (Verified Allergy, Intermediate, 04/16/24) Penicillins (Verified Allergy, Unknown, 03/01/25) Sulfa (Sulfonamide Antibiotics) (Verified Allergy, Unknown, difficulty breathing, hives, 03/01/25) acetaminophen (Verified Allergy, Unknown, 03/01/25) amoxicillin (Verified Allergy, Unknown, 03/01/25) codeine (Verified Allergy, Unknown, 03/01/25) hydrocodone bit (Verified Allergy, Unknown, 04/16/24) HIVES propoxyphene (Verified Allergy, Unknown, 04/16/24) tetracycline (Verified Allergy, Unknown, 04/16/24) Home Medications Home Medications Active Reported Cranberry (Cranberry Extract) 500 Mg Tablet 1 Tab PO Q12H Carvedilol 6.25 Mg Tablet 1 Tab PO BID Klonopin* (Clonazepam) 1 Mg Tablet 1 Mg PO TID ROS ROS A pertinent 10 point review of systems was performed and was normal except as otherwise noted. Please also see HPI for added review of systems. Exam Vitals: Vital Signs Date Time Temp Pulse Resp B/P (MAP) Pulse Ox O2 Delivery O2 Flow Rate FiO2 03/03/25 07:16 96 Room Air* 0 21 03/03/25 07:01 99.2 79 16 143/62 (89) General: General: Awake and Alert, no acute distress. HEENT: HEENT: Conjunctiva pink, Sclera clear, Mucus Membranes moist. Neck: Neck: Supple without masses and tenderness. Chest: Resp: Unlabored. Cardiovascular: Heart: Regular Rate and rhythm Abdomen: Abdomen: Soft and non tender no organomegaly Extremities: Extremities: No cyanosis,clubbing or edema. Skin: Skin: Warm and Dry. Diagnostic Data Last Recorded Lab Results: 03/03/2541203/03/25412 Diagnostic Data: 03/02/2025: CT abdomen and pelvis (my read): Patient has a left proximal ureteral stone mid ureteral round to mm to 3 mm in size with obstruction. Hydronephrosis proximal. Problems: (1) Ureteral stone with hydronephrosis Status: Acute Assessment & Plan: Ureteral stone in setting of infection. I would recommend stent placement due to the infection. I discussed the risk of this with the patient including infection, bleeding, damage to surrounding tissues, need for subsequent surgeries, stent pain. I discussed benefits including allowing for decompression of the kidney and allowing the infection to clear completely as well as alleviating stone pain. I discussed alternatives including observation. After discussion patient consented to surgery. -cystoscopy left retrograde pyelogram and ureteral stent placement today FABBY JAMES MD Mar 03, 2025 07:51
[2025-03-03] MEDS ORDERED: iohexol 300 MG/1 ML 50ml polymer ONE (09:35)
[2025-03-03] MEDS ORDERED: fentaNYL/PF 50MCG/1 ML 2ML syringe ONE (13:14)
[2025-03-03] MEDS ORDERED: midazolam 1 mg/ML 2ml injection ONE (13:14)
[2025-03-03] MEDS ORDERED: propofol inj 20 ML IV ONE (13:16)
[2025-03-03] MEDS ORDERED: ondansetron/PF 4mg/2ml inj ONE (13:30)
[2025-03-03] MEDS ORDERED: dexamethasone sod phosphate 4mg/ml inj. ONE (13:30)
--- NOTE | 2025-03-03 16:52 | PROGRESS NOTE- Residence ---
Progress Note - Resident Providers to CC Resident Creating Document: MOSES HERNANDEZ RES ~ Antibiotic Timeout Antibiotic Ordered?: Yes Subjective Patient was examined at the bedside, she underwent ureteral stent placement for her data stone with hydronephrosis by Dr. Russ Cuellar, patient expresses improvement in her symptom and denies any new complain. Her blood pressure currently 133/82, temperature is normal and pulse is normal, SpO2 94 on room air Objective Vital Signs Date Time Temp Pulse Resp B/P (MAP) Pulse Ox O2 Delivery O2 Flow Rate FiO2 03/03/25 14:20 75 14 133/82 (99) 94 Room Air 0.0 03/03/25 13:50 98.2 03/03/25 07:57 21 Result Diagram: 03/03/2541203/03/25412 Patient is,alert, orientedx4 , answering questions with normal speech HEENT: Normocephalic and atraumatic, Oral and nasal mucosa is moist. No visible head injuries Neck: Trachea is in midline. No masses or JVD Chest: Normal air movement bilaterally , Bilateral normal breath sounds. No crackles, rhonchi or wheezes Cardiovascular: Regular rate and regular rhythm. S1-S2 normal. 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 , awake, speech is clear CN II-XII - intact Normal Tone and Bulk in all extremities Sensation is intact in all extremities Co-ordination is intact Skin: warm and dry Advance Care Planning Advanced Care plannin - 30 Minutes Assessment Assessment 64 years old female with hypertension, posttraumatic stress disorder, recurrent UTI, renal calculi presented to ED is currently evaluated for UTI with sepsis, Plan Plan Sepsis, POA secondary to urinary tract infection Sepsis 2/4 criteria met-improving Temperature 99, pulse 85, blood pressure 142/66 WBC 17.4, ESR 85, procalcitonin 52 Urinalysis showed positive for bacteria pending cultures Lactic acid was normal Renal ultrasound shows- Left-sided hydronephrosis SpO2 97 on room air Abdomen/pelvic CT-1.9 mm distal left urethral calculus resulting in moderate left hydroureteronephrosis,Diffuse hepatic steatosis.Hysterectomy. Cholecystectomy. Posterior lumbar spine fusion surgery. Plan Continue IV ceftriaxone 1 g daily-2 and metronidazole 500 mg b.i.d. IV Continue IV normal saline 150 cc/hour 03/03/2025 WBC-13.1 Continue IV ceftriaxone 1 g daily and metronidazole 500 mg b.i.d. IV-day 3 Continue IV normal saline 150 cc/hour Follow-up with procalcitonin Moderate hydronephrosis secondary to left distal ureterolithiasis of 1.9 mm s/p ureteral stent placement Patient presents with intractable pain in costovertebral angle tenderness Renal ultrasound shows- Left-sided hydronephrosis Abdomen/pelvic CT-1.9 mm distal left urethral calculus resulting in moderate left hydroureteronephrosis,Diffuse hepatic steatosis.Hysterectomy. Cholecystectomy. Posterior lumbar spine fusion surgery. Plan Consulted urologist Dr. Cuellar and he will be evaluating patient tomorrow in a.m. for possible stent placement And patient is on NPO 03/03/2025 Patient underwent ureteral stent placement by Dr. Cuellar Today we started on tamsulosin 0.4 mg p.o. daily Acute kidney injury on chronic kidney disease stage 3 Possibly due to renal tubular stasis BUN -30, creatinine-2.86 Plan Continue normal saline IV 150 cc/hour Follow-up with spot urine sodium, creatinine, osmolarity Urologist was consulted and patient is on NPO 03/03/2025 BUN 20, creatinine 2.18, BUN: Creatinine-9.2 Plan Follow-up with spot urine creatinine, sodium and osmolarity Continue IV normal saline 150 cc/hour Hypertension Continue home med carvedilol 6.25 mg p.o. b.i.d. after med rec Hold if heart rate is less than 60 and systolic blood pressure less than 100 PTSD Patient takes clonazepam 1 mg p.o. b.i.d. Code Status: Full code DVT prophylaxis: Heparin subQ Line/tube: Peripheral Diet: Regular diet PT: Ordered Prognosis: Guarded Disposition-patient underwent ureteral stent placement by Dr. Cuellar today and patient will be monitored in surgery and pending PT evaluation Moses Hernandez PGY1-Internal Medicine Resident Date of Service: Mar 03, 2025 Billing Provider: CHARBEL BERNAL MD Common Visit Codes: [id number] INP/OBS CARE(HIGH) MOSES HERNANDEZ, FRAN Mar 03, 2025 16:52 CHARBEL BERNAL MD Mar 04, 2025 08:46
--- NOTE | 2025-03-03 18:29 | OPERATIVE REPORT ---
Operative Report Providers to ~ Date of Procedure: Mar 03, 2025 Pre-Operative Diagnosis: Left ureteral stone with infection Post-Operative Diagnosis SAME as PRE-Op Procedure Performed Cystoscopy, left retrograde pyelogram, left ureteral stent placement Surgeon: MD Polo Tmd Teacher Assistant None Anesthesiologist: Raymon Rahman Type of Anesthesia: General Findings: Left distal ureteral stone, impacted with hydronephrosis proximal. Complications None Prosthetics\Implants used: Left 6 x 24 double J ureteral stent. Estimated Blood Loss: Minimal Specimen Removed: None Description of Procedure: Patient was brought to the operating room, given a general anesthetic, placed in the dorsal lithotomy position. He was prepped and draped in the normal sterile fashion. A timeout was performed. The cystoscope was inserted via urethra. The left ureteral orifice was identified. A 5 iranian open-ended catheter was inserted and a retrograde pyelogram was injected. This showed a severe obstruction in the mid to distal left ureter. Hydronephrosis proximal. I then passed a wire up to the kidney. Over the wire a 6 x 24 double J ureteral stent was advanced into the kidney. The wire was removed and there was good coil seen on the proximal portion of the stent on spot fluoroscopy, and good coil on the distal portion on direct visualization. It was very difficult to get the stent past the stone. There was copious drainage from the stent. The patient was awakened from general anesthetic and transferred to the post-operative care unit in good condition. FABBY JAMES MD Mar 03, 2025 18:29
[2025-03-04] VITALS (8 sets, daily range): BP systolic 91–146; BP diastolic 48–77; PULSE 63–70; RESP 16–21; TEMP 97.2–97.9; O2SAT 91–97
[2025-03-04 04:43] LABS: MEAN PLATELET VOLUME 8.4 FL (7.4-10.4); RED CELL DISTRIBUTION WIDTH 13.6 % (11.5-14.5)
[2025-03-04 04:55] LABS: CREATININE 1.97 MG/DL (0.40-0.90); TOTAL CARBON DIOXIDE 24.6 MMOL/L (24-32); eCRCL 28 ML/MIN; eGFR 26 ML/MIN
[2025-03-04] MEDS: morphine 4 MG/ML inj SYRINge IV PRN (05:48)
[2025-03-04] MEDS ORDERED: TAMS-55 PO (08:13)
[2025-03-04] MEDS ORDERED: CEFD300C3 PO (09:06)
[2025-03-04] MEDS ORDERED: LACT1CAP26 PO (09:06)
--- NOTE | 2025-03-04 20:37 | PROGRESS NOTE- Residence ---
Progress Note - Resident Providers to CC Resident Creating Document: BAYRON HERNANDEZ RES ~ Antibiotic Timeout Antibiotic Ordered?: Yes Subjective Patient was examined at the bedside, she reported improvement in her symptoms Her vitals are stable Objective Vital Signs Date Time Temp Pulse Resp B/P (MAP) Pulse Ox O2 Delivery O2 Flow Rate FiO2 03/04/25 19:02 18 03/04/25 10:00 97.2 70 125/61 (82) 91 Room Air 03/03/25 20:00 0.0 21 Result Diagram: 03/04/2542003/04/25420 Patient is,alert, orientedx4 , answering questions with normal speech HEENT: Normocephalic and atraumatic, Oral and nasal mucosa is moist. No visible head injuries Neck: Trachea is in midline. No masses or JVD Chest: Normal air movement bilaterally , Bilateral normal breath sounds. No crackles, rhonchi or wheezes Cardiovascular: Regular rate and regular rhythm. S1-S2 normal. 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, speech is clear CN II-XII - intact Normal Tone and Bulk in all extremities Sensation is intact in all extremities Co-ordination is intact Skin: warm and dry Advance Care Planning Advanced Care plannin - 30 Minutes Assessment Assessment 64 years old female with hypertension, posttraumatic stress disorder, recurrent UTI, renal calculi presented to ED is currently evaluated for UTI with sepsis, Plan Plan Sepsis, POA secondary to urinary tract infection Sepsis resolved Temperature 99, pulse 85, blood pressure 142/66 WBC 17.4, ESR 85, procalcitonin 52 Urinalysis showed positive for bacteria pending cultures Lactic acid was normal Renal ultrasound shows- Left-sided hydronephrosis SpO2 97 on room air Abdomen/pelvic CT-1.9 mm distal left urethral calculus resulting in moderate left hydroureteronephrosis,Diffuse hepatic steatosis.Hysterectomy. Cholecystectomy. Posterior lumbar spine fusion surgery. Plan Continue IV ceftriaxone 1 g daily-2 and metronidazole 500 mg b.i.d. IV Continue IV normal saline 150 cc/hour 03/03/2025 WBC-13.1 Continue IV ceftriaxone 1 g daily and metronidazole 500 mg b.i.d. IV-day 3 Continue IV normal saline 150 cc/hour Follow-up with procalcitonin vitals are stable WBC 9.6, procalcitonin-28.71 Continue antibiotic ceftriaxone and metronidazole day 4 Pending urine culture Continue IV normal saline 150 cc/hour Moderate hydronephrosis secondary to left distal ureterolithiasis of 1.9 mm s/p ureteral stent placement Patient presents with intractable pain in costovertebral angle tenderness Renal ultrasound shows- Left-sided hydronephrosis Abdomen/pelvic CT-1.9 mm distal left urethral calculus resulting in moderate left hydroureteronephrosis,Diffuse hepatic steatosis.Hysterectomy. Cholecystectomy. Posterior lumbar spine fusion surgery. Plan Consulted urologist Dr. Cuellar and he will be evaluating patient tomorrow in a.m. for possible stent placement And patient is on NPO 03/03/2025 Patient underwent ureteral stent placement by Dr. Cuellar Today we started on tamsulosin 0.4 mg p.o. daily 03/03/2025 Continue monitoring the patient Acute kidney injury on chronic kidney disease stage 3 Improving Possibly due to renal tubular stasis BUN -30, creatinine-2.86 Plan Continue normal saline IV 150 cc/hour Follow-up with spot urine sodium, creatinine, osmolarity Urologist was consulted and patient is on NPO 03/03/2025 BUN 20, creatinine 2.18, BUN: Creatinine-9.2 Plan Follow-up with spot urine creatinine, sodium and osmolarity Continue IV normal saline 150 cc/hour 03/04/2025 BUN 25, creatinine 1.97, BUN: Creatinine-12.7 Follow-up with spot urine sodium creatinine osmolality Hypertension Continue home med carvedilol 6.25 mg p.o. b.i.d. after med rec Hold if heart rate is less than 60 and systolic blood pressure less than 100 PTSD Patient takes clonazepam 1 mg p.o. b.i.d. Code Status: Full code DVT prophylaxis: Heparin subQ Line/tube: Peripheral Diet: Regular diet PT: Ordered Prognosis: Guarded Disposition-patient underwent ureteral stent placement by Dr. Cuellar yesterday and waiting for PT evaluation Bayron Hernandez PGY1-Internal Medicine Resident Date of Service: Mar 04, 2025 Billing Provider: SARAH MCQUEEN MD, SATISH, RES Mar 04, 2025 20:37
[2025-03-05 02:00] VITALS: BP 159/71; PULSE 62; RESP 16; TEMP 98.3; O2SAT 95
[2025-03-05 04:28] LABS: MEAN PLATELET VOLUME 8.8 FL (7.4-10.4); RED CELL DISTRIBUTION WIDTH 13.5 % (11.5-14.5)
[2025-03-05 04:58] LABS: CREATININE 1.69 MG/DL (0.40-0.90); TOTAL CARBON DIOXIDE 23.5 MMOL/L (24-32); eCRCL 32 ML/MIN; eGFR 31 ML/MIN
[2025-03-05 06:00] VITALS: BP 154/85; PULSE 56; RESP 18; TEMP 97.8; O2SAT 97
[2025-03-05] MEDS ORDERED: hydrALAZINE 20mg/ml inj. IV PRN (08:10)
[2025-03-05] MEDS ORDERED: BUPR1PAT2 TOP (09:07)
[2025-03-05 10:00] VITALS: BP 168/85; PULSE 61; RESP 18; TEMP 97.4; O2SAT 96
[2025-03-05] MEDS: lactose-reduced food (Ensure Enlive) - 237ml bottle PO SCH (17:37)
[2025-03-05 18:00] VITALS: BP 164/95; PULSE 60; RESP 16; TEMP 97.3; O2SAT 96
--- NOTE | 2025-03-05 18:35 | PROGRESS NOTE- Residence ---
Progress Note - Resident Providers to CC Resident Creating Document: BAYRON HERNANDEZ RES ~ Antibiotic Timeout Antibiotic Ordered?: Yes Subjective Patient was examined at the bedside, reports overall improvement of her pain and she also reports improvement in her nausea Objective Vital Signs Date Time Temp Pulse Resp B/P (MAP) Pulse Ox O2 Delivery O2 Flow Rate FiO2 03/05/25 10:00 97.4 61 18 168/85 (112) 96 Room Air 03/04/25 20:30 0.0 03/03/25 20:00 21 Result Diagram: 03/05/25 0353 03/05/25 0353 Patient is,alert, orientedx4 , answering questions with normal speech HEENT: Normocephalic and atraumatic, Oral and nasal mucosa is moist. No visible head injuries Neck: Trachea is in midline. No masses or JVD Chest: Normal air movement bilaterally , Bilateral normal breath sounds. No crackles, rhonchi or wheezes Cardiovascular: Regular rate and regular rhythm. S1-S2 normal. 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 , awake, speech is clear CN II-XII - intact Normal Tone and Bulk in all extremities Sensation is intact in all extremities Co-ordination is intact Skin: warm and dry Advance Care Planning Advanced Care plannin - 30 Minutes Assessment Assessment 64 years old female with hypertension, posttraumatic stress disorder, recurrent UTI, renal calculi presented to ED is currently evaluated for UTI with sepsis, Plan Plan Sepsis, POA secondary to urinary tract infection Sepsis resolved Temperature 99, pulse 85, blood pressure 142/66 WBC 17.4, ESR 85, procalcitonin 52 Urinalysis showed positive for bacteria pending cultures Lactic acid was normal Renal ultrasound shows- Left-sided hydronephrosis SpO2 97 on room air Abdomen/pelvic CT-1.9 mm distal left urethral calculus resulting in moderate left hydroureteronephrosis,Diffuse hepatic steatosis.Hysterectomy. Cholecystectomy. Posterior lumbar spine fusion surgery. Plan Continue IV ceftriaxone 1 g daily-2 and metronidazole 500 mg b.i.d. IV Continue IV normal saline 150 cc/hour 03/03/2025 WBC-13.1 Continue IV ceftriaxone 1 g daily and metronidazole 500 mg b.i.d. IV-day 3 Continue IV normal saline Follow-up with procalcitonin 03/04/2025 vitals are stable WBC 9.6, procalcitonin-28.71 Continue antibiotic ceftriaxone and metronidazole day 4 Pending urine culture Continue IV normal saline 150 cc/hour 03/05/2025 WBC-15.1, procalcitonin-8.58 Follow up with urine culture and procalcitonin Continue antibiotics ceftriaxone and discontinued IV metronidazole Started on metronidazole 500 mg p.o. q.12h Moderate hydronephrosis secondary to left distal ureterolithiasis of 1.9 mm s/p ureteral stent placement Patient presents with intractable pain in costovertebral angle tenderness Renal ultrasound shows- Left-sided hydronephrosis Abdomen/pelvic CT-1.9 mm distal left urethral calculus resulting in moderate left hydroureteronephrosis,Diffuse hepatic steatosis.Hysterectomy. Cholecystectomy. Posterior lumbar spine fusion surgery. Plan Consulted urologist Dr. Cuellar and he will be evaluating patient tomorrow in a.m. for possible stent placement And patient is on NPO 03/03/2025 Patient underwent ureteral stent placement by Dr. Cuellar Today we started on tamsulosin 0.4 mg p.o. daily 03/05/2025 Continue tamsulosin 0.4 mg p.o. daily Continue monitoring the patient Acute kidney injury on chronic kidney disease stage 3 Improving Possibly due to renal tubular stasis BUN -30, creatinine-2.86 Plan Continue normal saline IV Follow-up with spot urine sodium, creatinine, osmolarity Urologist was consulted and patient is on NPO 03/03/2025 BUN 20, creatinine 2.18, BUN: Creatinine-9.2 Plan Follow-up with spot urine creatinine, sodium and osmolarity Continue IV normal saline 03/04/2025 BUN 25, creatinine 1.97, BUN: Creatinine-12.7 Follow-up with spot urine sodium creatinine osmolality 03/05/2025 BUN-30, creatinine-1.69, EGFR-2 1 Continue normal saline 125 cc per and continue monitoring CMP Hypertension BP 168/85 Started hydralazine 50 mg p.o. t.i.d. and continue amlodipine 10 mg p.o. daily IV hydralazine if systolic blood pressure is more than 160 mmHg and hold blood pressure medication if systolic blood pressure he is less than 100 PTSD Patient takes clonazepam 1 mg p.o. b.i.d. Code Status: Full code DVT prophylaxis: Heparin subQ Line/tube: Peripheral PT: Ordered Prognosis: Guarded Bayron Hernandez PGY1-Internal Medicine Resident Date of Service: Mar 05, 2025 Billing Provider: SARAH MCQUEEN MD, SATISH, RES Mar 05, 2025 18:35
[2025-03-05 20:00] VITALS: RESP 16; O2SAT 96
[2025-03-05 22:00] VITALS: BP 162/89; PULSE 63; RESP 18; TEMP 97.9; O2SAT 96
[2025-03-06] VITALS (8 sets, daily range): BP systolic 138–163; BP diastolic 66–96; PULSE 61–84; RESP 16–20; TEMP 97.1–98.7; O2SAT 96–98
[2025-03-06 06:26] LABS: OSMOLALITY UA 414.0 MOSM/K (50-1400)
[2025-03-06 06:47] LABS: CREATININE,URINE RANDOM 32.0 MG/DL; TOTAL PROTEIN,URINE RANDOM 32.5 MG/DL
[2025-03-06 07:10] LABS: CREATININE 1.66 MG/DL (0.40-0.90); TOTAL CARBON DIOXIDE 27.3 MMOL/L (24-32); eCRCL 33 ML/MIN; eGFR 31 ML/MIN
[2025-03-06 07:12] LABS: MEAN PLATELET VOLUME 8.4 FL (7.4-10.4); RED CELL DISTRIBUTION WIDTH 13.6 % (11.5-14.5)
[2025-03-06] MEDS ORDERED: magnesium sulf-water 2g/50mL 50 ML IV PRN (08:25)
[2025-03-06] MEDS ORDERED: potassium Cl 40MEQ/1/2NS 520ml 520 ML IV PRN (08:25)
[2025-03-06] MEDS ORDERED: potassium Cl 20 mEq SR tablet PO PRN (08:25)
[2025-03-06] MEDS ORDERED: magnesium Cl slow-release 64mg tablet PO PRN (08:25)
[2025-03-06] MEDS ORDERED: magnesium sulf-water 4G/100mL 100 ML IV PRN (08:25)
[2025-03-06 08:37] LABS: UA EOSINOPHILS FEW EOS /HPF
[2025-03-06] MEDS: potassium Cl 20 mEq SR tablet PO PRN (10:20)
--- NOTE | 2025-03-06 17:19 | PROGRESS NOTE- Residence ---
Progress Note - Resident Providers to CC Resident Creating Document: BAYRON HERNANDEZ RES ~ Antibiotic Timeout Antibiotic Ordered?: Yes Subjective Patient was examined at the bedside, she reported mild abdominal and reports improvement in her nausea Objective Vital Signs Date Time Temp Pulse Resp B/P (MAP) Pulse Ox O2 Delivery O2 Flow Rate FiO2 03/06/25 16:36 98 03/06/25 11:06 97.1 16 138/66 (90) 97 03/06/25 08:15 Room Air 0.0 21 Result Diagram: 03/06/2553203/06/25532 Patient is,alert, orientedx4 , answering questions with normal speech HEENT: Normocephalic and atraumatic, Oral and nasal mucosa is moist. No visible head injuries Neck: Trachea is in midline. No masses or JVD Chest: Normal air movement bilaterally , Bilateral normal breath sounds. No crackles, rhonchi or wheezes Cardiovascular: Regular rate and regular rhythm. S1-S2 normal. 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, speech is clear CN II-XII - intact Normal Tone and Bulk in all extremities Sensation is intact in all extremities Co-ordination is intact Skin: warm and dry Advance Care Planning Advanced Care plannin - 30 Minutes Assessment Assessment 64 years old female with hypertension, posttraumatic stress disorder, recurrent UTI, renal calculi presented to ED is currently evaluated for UTI with sepsis, Plan Plan Sepsis, POA secondary to urinary tract infection Sepsis resolved Temperature 99, pulse 85, blood pressure 142/66 WBC 17.4, ESR 85, procalcitonin 52 Urinalysis showed positive for bacteria pending cultures Lactic acid was normal Renal ultrasound shows- Left-sided hydronephrosis SpO2 97 on room air Abdomen/pelvic CT-1.9 mm distal left urethral calculus resulting in moderate left hydroureteronephrosis,Diffuse hepatic steatosis.Hysterectomy. Cholecystectomy. Posterior lumbar spine fusion surgery. Plan Continue IV ceftriaxone 1 g daily-2 and metronidazole 500 mg b.i.d. IV Continue IV normal saline 150 cc/hour 03/03/2025 WBC-13.1 Continue IV ceftriaxone 1 g daily and metronidazole 500 mg b.i.d. IV-day 3 Continue IV normal saline Follow-up with procalcitonin 03/04/2025 vitals are stable WBC 9.6, procalcitonin-28.71 Continue antibiotic ceftriaxone and metronidazole day 4 Pending urine culture Continue IV normal saline 150 cc/hour 03/05/2025 WBC-15.1, procalcitonin-8.58 Follow up with urine culture and procalcitonin Continue antibiotics ceftriaxone day 4 and discontinued IV metronidazole Started on metronidazole 500 mg p.o. q.12h day 1 03/06/2025 WBC-10.8, procalcitonin-4.06 Continue IV ceftriaxone -day 5 and metronidazole 5 mg p.o. day 2 Follow up with procalcitonin Moderate hydronephrosis secondary to left distal ureterolithiasis of 1.9 mm s/p ureteral stent placement Patient presents with intractable pain in costovertebral angle tenderness Renal ultrasound shows- Left-sided hydronephrosis Abdomen/pelvic CT-1.9 mm distal left urethral calculus resulting in moderate left hydroureteronephrosis,Diffuse hepatic steatosis.Hysterectomy. Cholecystectomy. Posterior lumbar spine fusion surgery. Plan Consulted urologist Dr. Cuellar and he will be evaluating patient tomorrow in a.m. for possible stent placement And patient is on NPO 03/03/2025 Patient underwent ureteral stent placement by Dr. Cuellar Today we started on tamsulosin 0.4 mg p.o. daily 03/05/2025 Continue tamsulosin 0.4 mg p.o. daily Continue monitoring the patient 03/06/2025 Continue monitoring the patient with CBC/CMP Acute kidney injury on chronic kidney disease stage 3 Improving Possibly due to renal tubular stasis BUN -30, creatinine-2.86 Plan Continue normal saline IV Follow-up with spot urine sodium, creatinine, osmolarity Urologist was consulted and patient is on NPO 03/03/2025 BUN 20, creatinine 2.18, BUN: Creatinine-9.2 Plan Follow-up with spot urine creatinine, sodium and osmolarity Continue IV normal saline 03/04/2025 BUN 25, creatinine 1.97, BUN: Creatinine-12.7 Follow-up with spot urine sodium creatinine osmolality 03/05/2025 BUN-30, creatinine-1.69, EGFR-2 1 Continue normal saline 125 cc per and continue monitoring CMP 03/06/2025 BUN-31, creatinine-1.66 Started D5 75 cc/hour Hypertension Blood pressure today was 149/96, 138/66 Continue hydralazine 50 mg p.o. t.i.d. and continue amlodipine 10 mg p.o. daily IV hydralazine if systolic blood pressure is more than 160 mmHg and hold blood pressure medication if systolic blood pressure he is less than 100 Follow up with vascular ultrasound kidney Hypernatremia Serum sodium-147 Held normal saline and started D5W PTSD Patient takes clonazepam 1 mg p.o. b.i.d. Bayron Hernandez PGY1-Internal Medicine Resident Date of Service: Mar 06, 2025 Billing Provider: SARAH MCQUEEN MD, SATISH, RES Mar 06, 2025 17:19
--- NOTE | 2025-03-06 17:25 | VASCULAR REPORT ---
INDICATION: NIRAV TECHNIQUE: Multiple real-time sonographic images of the kidneys and bladder were obtained. Duplex Doppler evaluation including color Doppler and spectral/pulsed waveform analysis of the bilateral renal arteries was performed. COMPARISON: DI PYELOGRAPHY,RETROGRADE on DOS: 03/03/25, CT CT ABDOMEN PELVIS on DOS: 03/02/25, US ULTRASOUND KIDNEY NON VASC on DOS: 03/01/25, CT CT ABDOMEN PELVIS on DOS: 04/16/24, CT ABDOMEN PELVIS on DOS: 11/17/19 FINDINGS: The right kidney measures 10.7 cm in length. The right renal echogenicity, contour and cortical thickness are within normal limits. No hydronephrosis or large masses/calculi are seen. The left kidney measures 11.6 cm in length. The left renal echogenicity, contour, and cortical thickness are within normal limits. No hydronephrosis or large masses/calculi are seen. Cyst is seen in the upper pole measuring up to 2.7 cm. Aorta peak systolic velocity, 100 cm/s Right renal artery peak systolic velocity, 146 cm/s (< 180 cm/s = normal). Left renal artery peak systolic velocity 140 cm/s (< 180 cm/s = normal). Right RAR : 1.46 (< 3.5, normal) Left RAR 2.11 (< 3.5, normal) Right RI: 0.72 (< 0.75, normal) Left RI: 0.78 (< 0.75, normal) IMPRESSION: 1. No sonographic evidence of renal artery stenosis. 2. Left renal cyst. *John Jiang Techniques in Noninvasive Vascular Diagnosis 2002
[2025-03-07 01:42] VITALS: O2SAT 18
[2025-03-07 05:00] VITALS: BP 149/66; PULSE 67; RESP 24; TEMP 97.4; O2SAT 97
[2025-03-07 09:39] VITALS: RESP 18; O2SAT 98
[2025-03-07 10:00] VITALS: BP 117/59; PULSE 77; RESP 18; TEMP 98.7; O2SAT 97
[2025-03-07 11:22] LABS: CREATININE 1.56 MG/DL (0.40-0.90); TOTAL CARBON DIOXIDE 26.2 MMOL/L (24-32); eCRCL 35 ML/MIN; eGFR 34 ML/MIN
[2025-03-07 12:07] LABS: MEAN PLATELET VOLUME 8.6 FL (7.4-10.4); RED CELL DISTRIBUTION WIDTH 13.7 % (11.5-14.5)
--- NOTE | 2025-03-07 14:09 | PROGRESS NOTE- Residence ---
Progress Note - Resident Providers to CC Resident Creating Document: BAYRON HERNANDEZ RES ~ Antibiotic Timeout Antibiotic Ordered?: Yes Subjective Patient was examined at the bedside, he reports improvement in her symptom, denies any nausea, vomiting but did mentioned tiredness Objective Vital Signs Date Time Temp Pulse Resp B/P (MAP) Pulse Ox O2 Delivery O2 Flow Rate FiO2 03/07/25 10:00 98.7 77 18 117/59 (78) 97 Room Air 03/07/25 09:39 0.0 21 Result Diagram: 03/07/25 0550 03/07/25 0550 Patient is,alert, orientedx4 , answering questions with normal speech HEENT: Normocephalic and atraumatic, Oral and nasal mucosa is moist. No visible head injuries Neck: Trachea is in midline. No masses or JVD Chest: Normal air movement bilaterally , Bilateral normal breath sounds. No crackles, rhonchi or wheezes Cardiovascular: Regular rate and regular rhythm. S1-S2 normal. No rubs or murmurs Abdomen: Abdomen is soft with mild tenderness, no guarding, no rigidity, normal bowel sounds are heard on auscultation Extremities: No cyanosis, clubbing or edema, No deformities, peripheral pulses 2+ ROOM SERVICE BELLHOP: Patient is alert , awake, speech is clear CN II-XII - intact Normal Tone and Bulk in all extremities Sensation is intact in all extremities Co-ordination is intact Skin: warm and dry Assessment Assessment 64 years old female with hypertension, posttraumatic stress disorder, recurrent UTI, renal calculi presented to ED is currently evaluated for UTI with sepsis, Plan Plan Urinary tract infection Sepsis resolved Temperature 99, pulse 85, blood pressure 142/66 WBC 17.4, ESR 85, procalcitonin 52 Urinalysis showed positive for bacteria pending cultures Lactic acid was normal Renal ultrasound shows- Left-sided hydronephrosis SpO2 97 on room air Abdomen/pelvic CT-1.9 mm distal left urethral calculus resulting in moderate left hydroureteronephrosis,Diffuse hepatic steatosis.Hysterectomy. Cholecystectomy. Posterior lumbar spine fusion surgery. Plan Continue IV ceftriaxone 1 g daily-2 and metronidazole 500 mg b.i.d. IV Continue IV normal saline 150 cc/hour 03/03/2025 WBC-13.1 Continue IV ceftriaxone 1 g daily and metronidazole 500 mg b.i.d. IV-day 3 Continue IV normal saline Follow-up with procalcitonin 03/04/2025 vitals are stable WBC 9.6, procalcitonin-28.71 Continue antibiotic ceftriaxone and metronidazole day 4 Pending urine culture Continue IV normal saline 150 cc/hour 03/05/2025 WBC-15.1, procalcitonin-8.58 Follow up with urine culture and procalcitonin Continue antibiotics ceftriaxone day 4 and discontinued IV metronidazole Started on metronidazole 500 mg p.o. q.12h day 1 03/06/2025 WBC-10.8, procalcitonin-4.06 Continue IV ceftriaxone -day 5 and metronidazole 5 mg p.o. day 2 Follow up with procalcitonin 03/07/2025 WBC and procalcitonin trending down Continue antibiotics ceftriaxone day 6 and metronidazole p.o. day 3 Acute kidney injury on chronic kidney disease stage 3 Possibly due to renal tubular stasis BUN and creatinine trending down Continue maintenance fluids Moderate hydronephrosis secondary to left distal ureterolithiasis of 1.9 mm s/p ureteral stent placement Continue maintenance fluid Continue monitoring the patient with CBC/CMP Hypertension Vitals are stable, MAP-78 Continue hydralazine 50 mg p.o. t.i.d. and continue amlodipine 10 mg p.o. daily IV hydralazine if systolic blood pressure is more than 160 mmHg and hold blood pressure medication if systolic blood pressure he is less than 100 vascular ultrasound kidney-No sonographic evidence of renal artery stenosis and Left renal cyst. Unilateral left renal cyst Ultrasound shows-left renal cyst with no sonographic evidence of renal stenosis Outpatient follow up with Nephrology Hypernatremia Improving Continue maintenance fluids PTSD Continue home medclonazepam 1 mg p.o. b.i.d. Disposition-patient will be monitored surgery and she is currently on maintenance fluids and follow up with procalcitonin Bayron Hernandez PGY1-Internal Medicine Resident Date of Service: Mar 07, 2025 Billing Provider: SARAH MCQUEEN MD, SATISH, RES Mar 07, 2025 14:09
[2025-03-07 15:03] LABS: BANDS% (MANUAL) 1.0 % (0-10); EOSINOPHILS % (MANUAL) 3.0 % (0-6); LYMPHOCYTES % (MANUAL) 26.0 % (21-51); METAMYLEOCYTES% (MANUAL) 2.0 % (0-0); MONOCYTES % (MANUAL) 12.0 % (2-12); NEUTROPHILS % (MANUAL) 56.0 % (42-75)
[2025-03-07 15:04] LABS: PLATELET ESTIMATE NORMAL
[2025-03-07 18:30] VITALS: BP 131/78; PULSE 75; RESP 15; TEMP 98.5; O2SAT 98
[2025-03-08 05:00] VITALS: BP 115/50; PULSE 73; RESP 19; TEMP 98.4; O2SAT 97
[2025-03-08 06:10] LABS: MEAN PLATELET VOLUME 8.4 FL (7.4-10.4); RED CELL DISTRIBUTION WIDTH 14.2 % (11.5-14.5)
[2025-03-08 06:13] LABS: CREATININE 1.44 MG/DL (0.40-0.90); TOTAL CARBON DIOXIDE 27.7 MMOL/L (24-32); eCRCL 38 ML/MIN; eGFR 37 ML/MIN
[2025-03-08 07:14] LABS: EOSINOPHILS % (MANUAL) 3.0 % (0-6); LYMPHOCYTES % (MANUAL) 31.0 % (21-51); METAMYLEOCYTES% (MANUAL) 1.0 % (0-0); MONOCYTES % (MANUAL) 6.0 % (2-12); NEUTROPHILS % (MANUAL) 59.0 % (42-75); PLATELET ESTIMATE NORMAL
[2025-03-08 07:27] VITALS: RESP 19; O2SAT 97
[2025-03-08 07:48] VITALS: BP_SYST 115; PULSE 73
[2025-03-08] MEDS ORDERED: CEFD300C3 PO (08:28)
--- NOTE | 2025-03-08 13:09 | DISCHARGE SUMMARY-Residence ---
Discharge Summary Providers to CC Resident Creating Document: WENDI MARTIN RES CC: SARAH MCQUEEN MD ~ Discharge Summary Admission Diagnosis: Left ureteral stone with infection Hospital Course DATE OF ADMISSION: 03/01/2025 DATE OF DISCHARGE: 03/08/2025 Discharge Diagnosis\Comment: Urinary tract infection Sepsis, present on admission Acute kidney injury on chronic kidney disease stage 3 Possibly due to renal tubular stasis Moderate hydronephrosis secondary to left distal ureterolithiasis of 1.9 mm s/p ureteral stent placement Hypertension Unilateral left renal cyst Hypernatremia PTSD Operations\Procedures: Left ureteral stent placement Consultants: Dr. Cuellar Complications: None Condition on DC: Stable New Medications: Cefdinir* (Cefdinir*) 300 Mg Capsule 1 CAP PO Q12H for 7 Days, #14 CAP Lactobacillus Rhamnosus (Culturelle) 10 Billion Cell Capsule 1 CAP PO DAILY for 30 Days, #30 CAP 0 Refills Tamsulosin Hcl* (Flomax*) 0.4 Mg Cap.sr.24h 1 CAP PO DAILY for 30 Days, #30 CAP Continued Medications: Carvedilol (Carvedilol) 6.25 Mg Tablet 1 TAB PO BID Clonazepam* (Klonopin*) 1 Mg Tablet 1 MG PO TID Cranberry Extract (Cranberry) 500 Mg Tablet 1 TAB PO Q12H, TAB 0 Refills Discharge Summary: HPI as per admitting physician: 64 year-old female with a history of hypertension, PTSD,obstructive sleep apnea recurrent urinary tract infections (UTIs), and renal calculi presented to the Emergency Department with Painful urination, severe costovertebral angle tenderness which radiates to groin with intensity of 7/10 burning type of pain and suprapubic discomfort which present for the past 4 days She reports a long-standing history of recurrent UTIs and recently completed a 7-day course of ciprofloxacin. However from past 4 days patient complained with a worsening of her symptoms. Her symptoms are associated with Fever and chills, Nausea and vomiting Stress incontinence, Fatigue Patient uses CPAP at home Hospital course: 64-year-old female patient with past medical history of hypertension PTSD,obstructive sleep apnea and recurrent UTI infections presented to the ED with burning micturition and costovertebral angle tenderness, patient's WBC was elevated to 17.4 and inflammatory markers were elevated as well, urine analysis tested positive for bacteria, urine culture reported mixed mejia, renal ultrasound was done which showed left-sided hydronephrosis and abdominal CT showed 1.9 mm distal left ureteral calculus resulting in moderate left hydronephrosis. We initiated the patient on antibiotics ceftriaxone, metronidazole and continued IV fluids. Urologist was consulted, Dr. Cuellar placed a left ureteral stent Patient also developed NIRAV on CKD stage 3 possibly due to renal tubular stasis, BUN and creatinine trended down. Patient has history of hypertension patient had episodes of elevated blood pressure, was treated appropriately with hydralazine 50 mg p.o. t.i.d. and amlodipine 10 mg p.o. patient's ultrasound showed left renal cyst which would require follow up outpatient with sales superintendent. Recommended patient's home medication clonazepam 1 mg p.o. b.i.d. for her PTSD. Significant imaging: Renal ultrasound 03/01/2025 Left-sided hydronephrosis. Abdominal CT 03/02/2025 1.9 mm distal left ureteral calculus resulting in moderate left hydrouretero nephrosis. Diffuse hepatic steatosis. Hysterectomy. Cholecystectomy. Posterior lumbar spine fusion surgery. Physical examination the time of discharge Patient is,alert, orientedx4 , answering questions with normal speech HEENT:Normocephalic and atraumatic, Oral and nasal mucosa is moist. No visible head injuries Neck:Trachea is in midline. No masses or JVD Chest:Normal air movement bilaterally , Bilateral normal breath sounds. No crackles, rhonchi or wheezes Cardiovascular:Regular rate and regular rhythm. S1-S2 normal. No rubs or murmurs Abdomen:Abdomen is soft with mild tenderness, no guarding, no rigidity, normal bowel sounds are heard on auscultation Extremities:No cyanosis, clubbing or edema, No deformities, peripheral pulses 2+ LIMB DRIVER:Patient is alert , awake, speech is clear CN II-XII - intact Normal Tone and Bulk in all extremities.Sensation is intact in all extremities Skin: warm and dry Vital Signs Date Time Temp Pulse Resp B/P (MAP) Pulse Ox O2 Delivery O2 Flow Rate FiO2 03/08/25 07:48 73 03/08/25 07:27 19 97 Room Air 0.0 21 03/08/25 05:00 98.4 115/50 (71) Laboratory Tests Test 03/07/25 05:50 10/6/25 04:28 03/08/25 05:50 White Blood Count 10.1 X10'3 10.1 X10'3 Red Blood Count 3.79 X10'6 4.00 X10'6 Hemoglobin 11.4 g/dl 12.1 g/dl Hematocrit 34.2 % 35.9 % Mean Corpuscular Volume 90.0 FL 89.7 FL Mean Corpuscular Hemoglobin 30.2 PG 30.3 PG Mean Corpuscular Hemoglobin Concent 33.5 g/dL 33.8 g/dL Red Cell Distribution Width 13.7 % 14.2 % Platelet Count 309 X10'3 340 X10'3 Mean Platelet Volume 8.6 FL 8.4 FL Neutrophils (%) (Auto) 57.9 % 61.0 % Lymphocytes (%) (Auto) 29.0 % 27.7 % Monocytes (%) (Auto) 9.3 % 7.1 % Eosinophils (%) (Auto) 2.7 % 3.7 % Basophils (%) (Auto) 1.1 % 0.5 % Neutrophils # (Auto) 5.9 X10'3 6.2 X10'3 Lymphocytes # (Auto) 2.9 X10'3 2.8 X10'3 Monocytes # (Auto) 0.9 X10'3 0.7 X10'3 Eosinophils # (Auto) 0.3 X10'3 0.4 X10'3 Basophils # (Auto) 0.1 X10'3 0.1 X10'3 CBC Comment Differential Total Cells Counted 100 100 Neutrophils % (Manual) 56.0 % 59.0 % Band Neutrophils % 1.0 % Lymphocytes % (Manual) 26.0 % 31.0 % Monocytes % (Manual) 12.0 % 6.0 % Eosinophils % (Manual) 3.0 % 3.0 % Metamyelocytes % 2.0 % 1.0 % Platelet Estimate Normal Normal Red Blood Cell Morphology Normal Normal Basophilic Stippling Sodium Level 143 MMOL/L 139 MMOL/L Potassium Level 3.8 MMOL/L 3.4 MMOL/L Chloride Level 109 MMOL/L 104 MMOL/L Carbon Dioxide Level 26.2 MMOL/L 27.7 MMOL/L Anion Gap 8 7 Blood Urea Nitrogen 25 MG/DL 26 MG/DL Creatinine 1.56 MG/DL 1.44 MG/DL Estimated GFR/1.73 m2 34 ML/MIN 37 ML/MIN BUN/Creatinine Ratio 16.0 18.1 Glucose Level 112 MG/DL 133 MG/DL Calcium Level 8.7 MG/DL 8.8 MG/DL Total Bilirubin 0.3 MG/DL 0.4 MG/DL Aspartate Amino Transf (AST/SGOT) 14 U/L 13 U/L Alanine Aminotransferase (ALT/SGPT) 16 U/L 11 U/L Alkaline Phosphatase 97 IU/L 110 IU/L Total Protein 6.7 G/DL 7.1 G/DL Albumin 2.6 G/DL 2.7 G/DL Globulin 4.1 G/DL 4.4 G/DL Albumin/Globulin Ratio 0.6 0.6 Procalcitonin 1.80 NG/ML 0.94 NG/ML Chemistry Comments Discharge instructions: Follow up with your PCP and urologist Dr. Cuellar in a week. We have prescribed antibiotics for a week and new medication tamsulosin. Take them as prescribed. Return to the ER if you have dysuria or decreased urinary output. *Problems/Diagnosis: (1) Ureteral stone with hydronephrosis Status: Acute Total Time Spent on D/C: Up to 30 Minutes Date of Service: Mar 08, 2025 Billing Provider: SARAH MCQUEEN MD, JAHNAVI, RES Mar 08, 2025 12:27
== END 2025-03-08 09:10 | disposition home or self-care (01) | DRG 853 ==
LOC: ER 12:09 → ED HOLD 16:33 → SUR 3N 19:02
PROVIDERS: ADMIT Internal Medicine; ATTEND Internal Medicine
PROC: BT1F1ZZ Fluoroscopy of Left Kidney, Ureter and Bladder using Low Osmolar Contrast (ICD-10-PCS; 2025-03-03)
PROC: 0T778DZ Dilation of Left Ureter with Intraluminal Device, Via Natural or Artificial Opening Endoscopic (ICD-10-PCS; principal; 2025-03-03 13:09)
DX: A41.9 Sepsis, unspecified organism (principal); N17.0 Acute kidney failure with tubular necrosis; E87.0 Hyperosmolality and hypernatremia; N13.6 Pyonephrosis; F41.0 Panic disorder [episodic paroxysmal anxiety]; F32.A Depression, unspecified; F43.10 Post-traumatic stress disorder, unspecified; G47.33 Obstructive sleep apnea (adult) (pediatric); I12.9 Hypertensive chronic kidney disease with stage 1 through stage 4 chronic kidney disease, or unspecified chronic kidney disease; N18.30 Chronic kidney disease, stage 3 unspecified; N28.1 Cyst of kidney, acquired; Z90.710 Acquired absence of both cervix and uterus; Z79.899 Other long term (current) drug therapy; Z87.442 Personal history of urinary calculi; Z88.8 Allergy status to other drugs, medicaments and biological substances; Z88.0 Allergy status to penicillin; Z87.440 Personal history of urinary (tract) infections
CPT/HCPCS: 36415; 74176; 74420; 76000; 76770; 80053; 81001; 82570; 82948; 83605; 83735; 83935; 84133; 84145; 84156; 84300; 85007; 85025; 85651; 86140; 87040; 87081; 87088; 87207; 93975; 96365; 99285; A4618; A6258; C1758; C1769; C2617; G0378; J0696; J1100; J1644; J2250; J2270; J2405; J2704; J3010; J3490; J7030; J7070; J7120; Q9967